=== PATIENT | male | born 1965 | race Caucasian/White ===

== ENCOUNTER 2017-05-23 05:35 | Inpatient (IN) | payer MEDICARE ==
[2017-05-23] VITALS (8 sets, daily range): BP systolic 98–145; BP diastolic 55–82
[~2017-05-23] VITALS: Ht 172.7 cm; Wt 77.1 kg
[2017-05-23] MEDS ORDERED: Albuterol ud Inhalation HHN ONE ×3 (05:45→07:45)
[2017-05-23] MEDS ORDERED: Ipratropium 0.02% Inh Soln 2.5ml UD ONE (05:45)
[2017-05-23] MEDS ORDERED: Albuterol ud Inhalation ONE (05:45)
[2017-05-23] MEDS ORDERED: Ipratropium 0.02% Inh Soln 2.5ml UD HHN ONE (05:45)
[2017-05-23] MEDS ORDERED: LORazepam Inj 2mg/ml 1ml IV ONE (05:45)
[2017-05-23] MEDS ORDERED: Solu-MEDROL 125mg Inj IVP ONE (05:45)
--- NOTE | 2017-05-23 05:49 | Emergency Room Report ---
History of Present Illness General Chief Complaint: Dyspnea/Respdistress Source: Patient, Medical Record Present Illness HPI Is a 50-year-old male with a history of asthma and anxiety. He present chief complaint chest pain. Onset since Sunday. He saw his primary care for sinus headache. Patient antibiotics. Symptom progressively getting worse. Now wheezing. Tight. Breathing treatment not helping. He called 911 because he couldn't breathe. No nausea no vomiting. No fever or chills. Has anxiety and palpation. No chest pain. Allergies: Coded Allergies: GABAPENTIN (Verified Allergy, Unknown, 05/23/17) PENICILLINS (Verified Allergy, Unknown, 05/23/17) TETRACYCLINES (Verified Allergy, Unknown, 05/23/17) Patient History Past Medical History: see triage record, old chart reviewed, asthma Past Surgical History: other Pertinent Family History: none Social History: Denies: smoking Immunizations: other Reviewed Nursing Documentation: PMH: Agreed, PSxH: Agreed Nursing Documentation-PMH Hx Hypertension: Yes Hx Asthma: Yes History Of Psychiatric Problem: Yes - Anxiety Review of Systems Eye: Denies: eye pain, blurred vision ENT: Denies: ear pain, nose congestion, throat swelling Respiratory: Reports: cough, shortness of breath, wheezing Cardiovascular: Denies: chest pain, palpitations Gastrointestinal: Denies: abdominal pain, diarrhea, nausea, vomiting Musculoskeletal: Denies: back pain, joint pain Skin: Denies: rash Neurological: Denies: headache, numbness Endocrine: Denies: increased thirst, increased urine Hematologic/Lymphatic: Denies: easy bruising All Other Systems: negative except mentioned in HPI Physical Exam Vital Signs Date Time Temp Pulse Resp B/P (MAP) Pulse Ox O2 Delivery O2 Flow Rate FiO2 05/23/17 05:33 97.0 134 29 98/74 93 Simple Mask 15.0 vitals with tachycardia and hypoxia Sp02 EP Interpretation: reviewed, abnormal General Appearance: well appearing, alert, moderate distress Head: normocephalic, atraumatic Eyes: bilateral eye PERRL, bilateral eye EOMI ENT: hearing grossly normal, normal pharynx Neck: full range of motion, supple, no meningismus Respiratory: chest non-tender, decreased breath sounds, accessory muscle use, wheezing Cardiovascular #1: regular rate, rhythm, no murmur Gastrointestinal: normal bowel sounds, non tender, no mass, no organomegaly, no bruit, non-distended Musculoskeletal: back normal, gait/station normal, normal range of motion Psychiatric: mood/affect normal Skin: warm/dry Procedures Critical Care Time Critical Care Time Critical care is mandated in this patient who presented with respiratory distress from status asthmaticus. Patient require my urgent intervention to attenuate the risks of respiratory collapse which may lead to cardiovascular collapse and . Critical care time is 35 minutes excluding any reportable procedure. Critical care time included evaluation, multiple reevaluation, looking at old charts, interpreting laboratory and diagnostic data, discussing case with patient and family and consultants, and charting. Medical Decision Making Diagnostic Impression: Primary Impression: Respiratory distress Additional Impression: Status asthmaticus Qualified Codes: J45.902 - Unspecified asthma with status asthmaticus ER Course Patient with asthma exacerbation. Still wheezing but improving. Heart rate better. X-ray unremarkable. Because of his respiratory status, will admit versus transfer for further treatment. I will sign this patient out to Dr. Carvajal for final disposition. Lab Results Impression labs with leukocytosis EKG Diagnostic Results Rate: tachycardiac Rhythm: NSR ST Segments: no acute changes Rhythm Strip Diag. Results Rhythm Strip Time: 06:49 EP Interpretation: yes Rate: 116 Rhythm: NSR, no PVC's, no ectopy Chest X-Ray Diagnostic Results Chest X-Ray Diagnostic Results : Chest X-Ray Ordered: Yes # of Views/Limited/Complete: 1 View Indication: Shortness of Breath EP Interpretation: Yes Interpretation: no consolidation, no effusion, no pneumothorax, no acute cardiopulmonary disease Impression: No acute disease Electronically Signed by: Electronically signed by Ramiro Mccollum MD Last Vital Signs Date Time Temp Pulse Resp B/P (MAP) Pulse Ox O2 Delivery O2 Flow Rate FiO2 05/23/17 05:33 97.0 134 29 98/74 93 Simple Mask 15.0 Status: improved Disposition: ADMITTED INPATIENT Condition: Serious RAMIRO MCCOLLUM M.D. May 23, 2017 05:49
[2017-05-23 06:17] LABS: BASOPHILS % (AUTO) 0.5 % (0.0-2.0); LYMPHOCYTES % (AUTO) 17.2 % (20.0-45.0); MEAN CORPUSCULAR HGB CONC 33.7 G/DL (32.0-36.0); MEAN CORPUSCULAR VOLUME 95 FL (80-99); MEAN PLATELET VOLUME 6.8 FL (6.5-10.1); MONOCYTES % (AUTO) 7.5 % (1.0-10.0); NEUTROPHILS % (AUTO) 69.8 % (45.0-75.0); PLATELET COUNT 213 K/UL (150-450); RED BLOOD COUNT 4.49 M/UL (4.70-6.10); RED CELL DISTRIBUTION WIDTH 12.5 % (11.6-14.8); WHITE BLOOD COUNT 15.1 K/UL (4.8-10.8)
[2017-05-23] MEDS ORDERED: ALPRAZOLAM1 M2 ORAL (07:00)
[2017-05-23] MEDS ORDERED: DIVALPROEX SOD500 M2 PO (07:00)
[2017-05-23] MEDS ORDERED: METOPROLOL SUCC50 MG ORAL (07:00)
[2017-05-23] MEDS ORDERED: EDARBI40 MG ORAL (07:00)
[2017-05-23] MEDS ORDERED: DIVALPROEX SOD250 M1 PO (07:00)
[2017-05-23] MEDS ORDERED: VENLAFAXINE HC150 MG ORAL (07:00)
[2017-05-23] MEDS ORDERED: NORVASC10 MG ORAL (07:00)
[2017-05-23] MEDS ORDERED: Azithromycin 250mg tab ORAL ONE (07:15)
[2017-05-23 07:18] LABS: ALANINE AMINOTRANSFERASE 18 U/L (12-78); ALBUMIN/GLOBULIN RATIO 1.1 (1.0-2.7); ANION GAP 10 mmol/L (5-15); ASPARTATE AMINO TRANSFERASE 14 U/L (15-37); CALCIUM 9.2 MG/DL (8.5-10.1); CARBON DIOXIDE 27 MMOL/L (21-32); CHLORIDE 106 MMOL/L (98-107); CKMB 1.1 NG/ML (0.0-3.6); GLOMERULAR FILTRATION RATE > 60 mL/min (>60); POTASSIUM 4.1 MMOL/L (3.5-5.1); SODIUM 143 MMOL/L (136-145); TOTAL PROTEIN 7.4 G/DL (6.4-8.2)
[2017-05-23] MEDS ORDERED: Albuterol/Ipratropium 3ml neb HHN PRN ×2 (08:45→10:15)
[2017-05-23 08:47] LABS: APPEARANCE,URINE SLIGHTLY CLOUDY; KETONES,URINE 3+ (NEGATIVE); LEUKOCYTE ESTERASE ,URINE 1+ (NEGATIVE); NITRITE,URINE NEGATIVE (NEGATIVE); PH,URINE 5 (4.5-8.0); PROTEIN,URINE 2+ (NEGATIVE); UROBILINOGEN,URINE NORMAL MG/DL (0.0-1.0)
[2017-05-23 09:01] LABS: BACTERIA,URINE FEW /HPF; MUCUS,URINE MODERATE /LPF (NONE/OCC); SQUAMOUS EPITHELIAL CELL,UR OCCASIONAL /LPF (NONE/OCC)
[2017-05-23] MEDS ORDERED: Promethazine/Codeine 5ml UD ORAL PRN (10:15)
[2017-05-23] MEDS ORDERED: Nitroglycerin Subl 0.4mg tab SL PRN (10:15)
[2017-05-23] MEDS ORDERED: LORazepam Inj 2mg/ml 1ml IV PRN (10:15)
[2017-05-23] MEDS ORDERED: Ketorolac 30mg Inj IV PRN (10:15)
[2017-05-23] MEDS ORDERED: Morphine Sulfate 2mg/ml Inj IVP PRN (10:15)
--- NOTE | 2017-05-23 11:48 | Diagnostic Imaging Report ---
Indication: SOB Technique: One view of the chest Comparison: none Findings: Lungs and pleural spaces are clear. Heart size is normal. Impression: No acute process
[2017-05-23] MEDS: Solu-MEDROL 125mg Inj IV SCH ×2 (12:26→18:09)
--- NOTE | 2017-05-23 14:50 | History and Physical ---
History of Present Illness General Date patient seen: May 23, 2017 Time patient seen: 14:50 Reason for Hospitalization: Dyspnea/Respdistress Present Illness HPI 50yo male with pmh of asthma, tobacco abuse, HTN, bipolar d/o, anxiety, testicular cancer s/p orchiectomy and XRT who presents with SOB and congestion. Pt states symptoms started Sunday w/ sinus pressure, headache, congestion. He saw his PCP and was placed on antibiotics. He noted increasing SOB, wheezing, cough, congestion. Cough is productive of thick sputum. His inhaler did not help. He called 911 because he couldn't breathe. Denies f/c, n/v, d/c, abd pain , LE swelling. Also notes some chest discomfort form congestion and constant coughing. In ED, pt noted to be hypoxic to 88% on RA, tachycardic and wheezing. He was given several rounds of nebs, steroids and antibiotics w/o significant response. Allergies: Coded Allergies: GABAPENTIN (Verified Allergy, Unknown, 05/23/17) PENICILLINS (Verified Allergy, Unknown, 05/23/17) TETRACYCLINES (Verified Allergy, Unknown, 05/23/17) Medication History Scheduled Alprazolam (Alprazolam), 1 MG ORAL TID, (Reported) Amlodipine Besylate (Norvasc), 10 MG ORAL DAILY, (Reported) Azilsartan Medoxomil (Edarbi), 40 MG ORAL DAILY, (Reported) Metoprolol Succinate* (Metoprolol Succinate*), 50 MG ORAL DAILY, (Reported) Venlafaxine Hcl* (Venlafaxine Hcl Er*), 150 MG ORAL DAILY, (Reported) Miscellaneous Medications Divalproex Sodium (Divalproex Sodium Er), 500 MG PO, (Reported) Divalproex Sodium (Divalproex Sodium Er), 250 MG PO, (Reported) Patient History History Provided By: Patient, Medical Record, PMD Healthcare decision maker Resuscitation status Advanced Directive on File Past Medical/Surgical History Past Medical/Surgical History: (1) Asthma (2) HTN (hypertension) (3) Bipolar disorder (4) Testicular cancer (5) S/P orchiectomy (6) Anxiety Family History Family History: FH: HTN (hypertension) TIAs Social History Social History: (1) Tobacco abuse Review of Systems Constitutional: Reports: no symptoms Eye: Reports: no symptoms ENT: Reports: no symptoms Respiratory: Reports: cough, shortness of breath, wheezing, sputum Cardiovascular: Reports: palpitations Gastrointestinal: Reports: no symptoms Genitourinary: Reports: no symptoms Musculoskeletal: Reports: no symptoms Skin: Reports: no symptoms Psychiatric: Reports: no symptoms Neurological: Reports: no symptoms Endocrine: Reports: no symptoms Hematologic/Lymphatic: Reports: no symptoms Physical Exam Physical Exam Narrative General: alert, cooperative, no distress, appears stated age Head: normocephalic, without obvious abnormality, atraumatic Eyes: conjunctivae/corneas clear. PERRL, EOM's intact Throat: lips, mucosa, and tongue normal. MMM Neck: supple, symmetrical, trachea midline, and no JVD Lungs: +wheezing L>R Heart: tachycardic, regular rhythm, S1, S2 normal, no murmur, click, rub or gallop Abdomen: soft, non-tender, non-distended, bowel sounds normal; no masses or organomegaly Extremities: extremities normal, atraumatic, no cyanosis or edema Pulses: 2+ and symmetric Skin: skin color, texture, turgor normal; no rashes or lesions Neurologic: grossly normal, no focal deficits Last 24 Hour Vital Signs Date Time Temp Pulse Resp B/P (MAP) Pulse Ox O2 Delivery O2 Flow Rate FiO2 05/23/17 09:15 98 18 96 Nasal Cannula 2.0 28 05/23/17 08:35 100 20 93 Simple Mask 6.0 44 05/23/17 08:00 103 28 128/65 97 Simple Mask 6.0 05/23/17 07:10 111 20 98 Simple Mask 6.0 05/23/17 07:00 115 20 96 Room Air 05/23/17 06:33 97.0 113 28 118/55 97 Simple Mask 15.0 05/23/17 06:07 130 24 98 Room Air 05/23/17 05:50 125 24 94 Room Air 05/23/17 05:50 125 24 Room Air 05/23/17 05:41 134 29 Simple Mask 15.0 93 05/23/17 05:40 97.0 134 29 98/74 93 Simple Mask 15.0 05/23/17 05:33 97.0 134 29 98/74 93 Simple Mask 15.0 Laboratory Tests Test 05/23/17 05:45 05/23/17 08:00 White Blood Count 15.1 K/UL (4.8-10.8) H Red Blood Count 4.49 M/UL (4.70-6.10) L Hemoglobin 14.4 G/DL (14.2-18.0) Hematocrit 42.7 % (42.0-52.0) Mean Corpuscular Volume 95 FL (80-99) Mean Corpuscular Hemoglobin 32.0 PG (27.0-31.0) H Mean Corpuscular Hemoglobin Concent 33.7 G/DL (32.0-36.0) Red Cell Distribution Width 12.5 % (11.6-14.8) Platelet Count 213 K/UL (150-450) Mean Platelet Volume 6.8 FL (6.5-10.1) Neutrophils (%) (Auto) 69.8 % (45.0-75.0) Lymphocytes (%) (Auto) 17.2 % (20.0-45.0) L Monocytes (%) (Auto) 7.5 % (1.0-10.0) Eosinophils (%) (Auto) 5.0 % (0.0-3.0) H Basophils (%) (Auto) 0.5 % (0.0-2.0) Sodium Level 143 MMOL/L (136-145) Potassium Level 4.1 MMOL/L (3.5-5.1) Chloride Level 106 MMOL/L (98-107) Carbon Dioxide Level 27 MMOL/L (21-32) Anion Gap 10 mmol/L (5-15) Blood Urea Nitrogen 16 mg/dL (7-18) Creatinine 1.0 MG/DL (0.55-1.30) Estimat Glomerular Filtration Rate > 60 mL/min (>60) Glucose Level 138 MG/DL (74-106) H Calcium Level 9.2 MG/DL (8.5-10.1) Total Bilirubin 0.5 MG/DL (0.2-1.0) Aspartate Amino Transf (AST/SGOT) 14 U/L (15-37) L Alanine Aminotransferase (ALT/SGPT) 18 U/L (12-78) Alkaline Phosphatase 77 U/L (46-116) Total Creatine Kinase 74 U/L (26-308) Creatine Kinase MB 1.1 NG/ML (0.0-3.6) Creatine Kinase MB Relative Index 1.4 Troponin I 0.007 ng/mL (0.000-0.056) Pro-B-Type Natriuretic Peptide 33 pg/mL (0-125) Total Protein 7.4 G/DL (6.4-8.2) Albumin 3.8 G/DL (3.4-5.0) Globulin 3.6 g/dL Albumin/Globulin Ratio 1.1 (1.0-2.7) Urine Color Yellow Urine Appearance Slightly cloudy Urine pH 5 (4.5-8.0) Urine Specific [place] 1.020 (1.005-1.035) Urine Protein 2+ (NEGATIVE) H Urine Glucose (UA) Negative (NEGATIVE) Urine Ketones 3+ (NEGATIVE) H Urine Occult Blood 2+ (NEGATIVE) H Urine Nitrite Negative (NEGATIVE) Urine Bilirubin Negative (NEGATIVE) Urine Urobilinogen Normal MG/DL (0.0-1.0) Urine Leukocyte Esterase 1+ (NEGATIVE) H Urine RBC 2-4 /HPF (0 - 0) H Urine WBC 10-15 /HPF (0 - 0) H Urine Squamous Epithelial Cells Occasional /LPF Urine Bacteria Few /HPF (NONE) Urine Mucus Moderate /LPF (NONE/OCC) H Urine Opiates Screen Negative (NEGATIVE) Urine Barbiturates Screen Negative (NEGATIVE) Phencyclidine (PCP) Screen Negative (NEGATIVE) Urine Amphetamines Screen Negative (NEGATIVE) Urine Benzodiazepines Screen Positive (NEGATIVE) H Urine Cocaine Screen Negative (NEGATIVE) Urine Marijuana (THC) Screen Negative (NEGATIVE) Height (Feet): 5 Height (Inches): 8.00 Weight (Pounds): 170 Medications Current Medications Medications (Trade) Dose Ordered Sig/[place] Route PRN Reason Start Time Stop Time Status Last Admin Dose Admin Albuterol/ Ipratropium (DuoNeb 0.5-3(2.5)mg/3ml) 3 ml Q4H PRN HHN Shortness of Breath 05/23/17 08:45 05/28/17 08:44 Aztreonam 1 gm/ Sodium Chloride 50 ml @ 100 mls/hr EVERY 8 HOURS IVPB 05/23/17 16:00 05/30/17 15:59 Dextrose (Dextrose 50%) STAT PRN IV Hypoglycemia 05/23/17 08:45 06/22/17 08:44 Dextrose (Dextrose 50%) STAT PRN IV Hypoglycemia 05/23/17 10:15 06/22/17 10:14 Heparin Sodium (Porcine) (Heparin 5000 units/ml) 5,000 units EVERY 12 HOURS SUBQ 05/23/17 21:00 06/22/17 20:59 Ketorolac Tromethamine (Toradol 30mg) 30 mg Q8H PRN IV Moderate Pain (Pain Scale 4-6) 05/23/17 10:15 05/28/17 10:14 Lorazepam (Ativan 2mg/ml 1ml) 0.5 mg Q4H PRN IV For Anxiety 05/23/17 10:15 05/30/17 10:14 Methylprednisolone Sodium Succinate (Solu-MEDROL) 60 mg EVERY 6 HOURS IV 05/23/17 12:00 06/22/17 11:59 05/23/17 12:26 Morphine Sulfate (Morphine Sulfate) 2 mg Q4H PRN IVP Severe Pain (Pain Scale 7-10) 05/23/17 10:15 05/30/17 10:14 Nitroglycerin (Ntg) 0.4 mg Q5M X 3 DOSES PRN SL Prn Chest Pain 05/23/17 10:15 06/22/17 10:14 Ondansetron HCl (Zofran) 4 mg Q6H PRN IVP Nausea & Vomiting 05/23/17 10:15 06/22/17 10:14 Promethazine HCl/ Codeine (Phenergan with Codeine) 5 ml Q6H PRN ORAL cough 05/23/17 10:15 06/22/17 10:14 Temazepam (Restoril) 15 mg HSPRN PRN ORAL Insomnia 05/23/17 21:00 05/30/17 20:59 Theophylline (Cast[place]-Dur) 100 mg EVERY 12 HOURS ORAL 05/23/17 21:00 06/22/17 20:59 Assessment/Plan Problem List: (1) Acute respiratory failure with hypoxia ICD Codes: J96.01 - Acute respiratory failure with hypoxia SNOMED: 42027567, 545333099 (2) [place] vs COPD exacerbaion (3) Sinus tachycardia ICD Codes: R00.0 - Tachycardia, unspecified SNOMED: 05367828 (4) Tobacco abuse ICD Codes: Z72.0 - Tobacco use SNOMED: 78650979, 490835570 (5) HTN (hypertension) ICD Codes: I10 - Essential (primary) hypertension SNOMED: 24555151 (6) Anxiety ICD Codes: F41.9 - Anxiety disorder, unspecified SNOMED: 61243205 (7) Asthma ICD Codes: J45.909 - Unspecified asthma, uncomplicated SNOMED: 570231401 (8) Bipolar disorder ICD Codes: F31.9 - Bipolar disorder, unspecified SNOMED: 82633035 (9) Sinusitis ICD Codes: J32.9 - Chronic sinusitis, unspecified SNOMED: 00584660 (10) Chest pain, atypical ICD Codes: R07.89 - Other chest pain SNOMED: 088027848 Status: stable Assessment/Plan Admit inpt Pulmonology consulted Cont steroids, nebs, antibiotics Guaifenesin PRN Cardiology consulted given chest pain Trend trop/EKG 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 Disposition: Once the patient is stable to leave the hospital, I anticipate the patient will likely be discharged to the following environment: home with HH vs SNF I spent 72 minutes on this patient's case, and 45 minutes were dedicated to counseling and/or care coordination. Discussed with patient/family, nursing staff, SW/CM, pulmonology, cardiology regarding clinical status, treatment course, and disposition planning. Time of note may not reflect time of encounter. Ana Cristina Martínez M.D. May 23, 2017 14:50
--- NOTE | 2017-05-23 15:19 | Cardiology Report ---
APPROVED REPORT EKG Measurement Heart [id number] [id number] Sinus tachycardia Left posterior fascicular block Abnormal ECG
[2017-05-23] MEDS ORDERED: ALPRAZolam 0.5mg tab ORAL PRN (16:15)
[2017-05-23] MEDS: Aztreonam Inj 1 GM in NS 50 ML IVPB SCH ×2 (16:24→21:36)
[2017-05-23] MEDS: Depakote ER 250mg tab ORAL SCH (16:40)
[2017-05-23] MEDS: Ipratropium 0.02% Inh Soln 2.5ml UD HHN SCH ×2 (19:00→23:15)
[2017-05-23] MEDS: Theophylline ER 100mg ORAL SCH (21:35)
[2017-05-23] MEDS: Heparin 5000 units/ml inj SUBQ SCH (21:40)
[2017-05-23] MEDS ORDERED: guaiFENesin DM 100mg/5ml ORAL PRN (23:00)
[2017-05-24] VITALS: BP 147/90
[2017-05-24] MEDS: Solu-MEDROL 125mg Inj IV SCH ×4 (00:20→17:52)
[2017-05-24] MEDS: Ipratropium 0.02% Inh Soln 2.5ml UD HHN SCH ×6 (03:11→22:53)
[2017-05-24 04:00] VITALS: BP 144/89
[2017-05-24] MEDS: Aztreonam Inj 1 GM in NS 50 ML IVPB SCH ×2 (06:14→14:27)
[2017-05-24 06:17] LABS: MEAN CORPUSCULAR HEMOGLOBIN 31.8 PG (27.0-31.0); MEAN CORPUSCULAR HGB CONC 33.7 G/DL (32.0-36.0); MEAN CORPUSCULAR VOLUME 94 FL (80-99); MEAN PLATELET VOLUME 7.3 FL (6.5-10.1); PLATELET COUNT 229 K/UL (150-450); RED BLOOD COUNT 4.12 M/UL (4.70-6.10); RED CELL DISTRIBUTION WIDTH 12.6 % (11.6-14.8); WHITE BLOOD COUNT 21.8 K/UL (4.8-10.8)
[2017-05-24 06:29] LABS: ANION GAP 10 mmol/L (5-15); CALCIUM 9.3 MG/DL (8.5-10.1); CARBON DIOXIDE 27 MMOL/L (21-32); CHLORIDE 106 MMOL/L (98-107); CREATININE 0.6 MG/DL (0.55-1.30); GLOMERULAR FILTRATION RATE > 60 mL/min (>60); MAGNESIUM 2.4 MG/DL (1.8-2.4); POTASSIUM 4.5 MMOL/L (3.5-5.1); SODIUM 143 MMOL/L (136-145)
[2017-05-24 08:00] VITALS: BP 165/97
[2017-05-24] MEDS: Theophylline ER 100mg ORAL SCH ×2 (08:54→21:19)
[2017-05-24] MEDS: guaiFENesin ER 600mg tab ORAL SCH ×2 (08:56→17:52)
[2017-05-24] MEDS: EDARBI 40 MG ORAL SCH (08:56)
[2017-05-24] MEDS: Heparin 5000 units/ml inj SUBQ SCH ×2 (08:59→21:21)
[2017-05-24] MEDS ORDERED: Venlafaxine XR 150mg cap ORAL SCH (09:00)
[2017-05-24] MEDS ORDERED: Metoprolol Succinate XL 50mg tab ORAL SCH (09:00)
[2017-05-24 09:39] LABS: BAND NEUTROPHILS % (MANUAL) 0 % (0-8); BASOPHILS % (MANUAL) 0 % (0-2); EOSINOPHILS % (MANUAL) 0 % (0-3); LYMPHOCYTES % (MANUAL) 6 % (20-45); NEUTROPHILS % (MANUAL) 93 % (45-75); PLATELET ESTIMATE ADEQUATE; PLATELET MORPHOLOGY NORMAL; TOTAL CELLS COUNTED 100
--- NOTE | 2017-05-24 10:43 | Cardiac Electrophysiology PN ---
Subjective Subjective Dictated [id number] Objective Last 24 Hour Vital Signs Date Time Temp Pulse Resp B/P (MAP) Pulse Ox O2 Delivery O2 Flow Rate FiO2 05/24/17 08:55 101 165/97 05/24/17 08:54 101 165/97 05/24/17 08:00 98.4 101 18 165/97 96 Nasal Cannula 2.0 05/24/17 07:42 100 20 98 Nasal Cannula 2.0 28 05/24/17 07:27 99 20 95 Nasal Cannula 2.0 28 05/24/17 07:26 Nasal Cannula 2.0 28 05/24/17 07:26 95 Nasal Cannula 2.0 28 05/24/17 04:00 97.9 89 20 144/89 93 Nasal Cannula 2.0 05/24/17 04:00 93 05/24/17 03:19 78 18 99 Nasal Cannula 2.0 28 05/24/17 03:10 90 18 93 Nasal Cannula 2.0 28 05/24/17 00:00 98.4 90 20 147/90 96 Nasal Cannula 2.0 05/23/17 23:24 77 18 98 Nasal Cannula 2.0 28 05/23/17 23:15 87 18 92 Nasal Cannula 2.0 28 05/23/17 21:00 103 05/23/17 20:00 98.8 96 21 141/77 96 Nasal Cannula 2.0 05/23/17 20:00 98 05/23/17 19:10 105 20 97 Nasal Cannula 2.0 28 05/23/17 19:00 Nasal Cannula 2.0 28 05/23/17 19:00 94 Nasal Cannula 2.0 28 05/23/17 19:00 113 20 94 Nasal Cannula 2.0 28 05/23/17 16:59 98 05/23/17 16:00 99.0 102 24 145/82 95 Nasal Cannula 2.0 05/23/17 14:14 98.6 102 23 124/68 96 Nasal Cannula 4.0 05/23/17 14:14 102 23 124/68 96 Nasal Cannula 4.0 05/23/17 12:00 103 30 126/70 94 Nasal Cannula 4.0 Intake and Output 05/24/17 05/25/17 19:00 07:00 Intake Total 450 ml Balance 450 ml Intake Oral 450 ml # Voids 1 Laboratory Tests Test 05/24/17 04:45 White Blood Count 21.8 K/UL (4.8-10.8) H Red Blood Count 4.12 M/UL (4.70-6.10) L Hemoglobin 13.1 G/DL (14.2-18.0) L Hematocrit 38.9 % (42.0-52.0) L Mean Corpuscular Volume 94 FL (80-99) Mean Corpuscular Hemoglobin 31.8 PG (27.0-31.0) H Mean Corpuscular Hemoglobin Concent 33.7 G/DL (32.0-36.0) Red Cell Distribution Width 12.6 % (11.6-14.8) Platelet Count 229 K/UL (150-450) Mean Platelet Volume 7.3 FL (6.5-10.1) Neutrophils (%) (Auto) % (45.0-75.0) Lymphocytes (%) (Auto) % (20.0-45.0) Monocytes (%) (Auto) % (1.0-10.0) Eosinophils (%) (Auto) % (0.0-3.0) Basophils (%) (Auto) % (0.0-2.0) Differential Total Cells Counted 100 Neutrophils % (Manual) 93 % (45-75) H Lymphocytes % (Manual) 6 % (20-45) L Monocytes % (Manual) 1 % (1-10) Eosinophils % (Manual) 0 % (0-3) Basophils % (Manual) 0 % (0-2) Band Neutrophils 0 % (0-8) Platelet Estimate Adequate Platelet Morphology Normal Red Blood Cell Morphology Normal Sodium Level 143 MMOL/L (136-145) Potassium Level 4.5 MMOL/L (3.5-5.1) Chloride Level 106 MMOL/L (98-107) Carbon Dioxide Level 27 MMOL/L (21-32) Anion Gap 10 mmol/L (5-15) Blood Urea Nitrogen 14 mg/dL (7-18) Creatinine 0.6 MG/DL (0.55-1.30) Estimat Glomerular Filtration Rate > 60 mL/min (>60) Glucose Level 128 MG/DL (74-106) H Calcium Level 9.3 MG/DL (8.5-10.1) Magnesium Level 2.4 MG/DL (1.8-2.4) Troponin I 0.146 ng/mL (0.000-0.056) Microbiology Date/Time Source Procedure Growth Status 05/23/17 08:00 Urine,Clean Catch Urine Culture - Preliminary NO GROWTH Resulted BETH MOON May 24, 2017 10:43
[2017-05-24 12:04] VITALS: BP 160/100
--- NOTE | 2017-05-24 12:05 | Consultation ---
History of Present Illness General Date patient seen: May 23, 2017 Chief Complaint: Dyspnea/Respdistress Present Illness HPI 50-year-old male with a history of HTN, multiple allergies, asthma and anxiety He present chief complaint chest tightness and difficulty breathing with wheezing. He called 911 because he couldn't breathe. It all started with a sinus infection which moved to his lungs. Pt was diagnosed to have acute exacerbation of Asthma and COPD and admitted to [facility] Allergies: Coded Allergies: GABAPENTIN (Verified Allergy, Unknown, 05/23/17) PENICILLINS (Verified Allergy, Unknown, 05/23/17) TETRACYCLINES (Verified Allergy, Unknown, 05/23/17) Medication History Scheduled Alprazolam (Alprazolam), 1 MG ORAL TID, (Reported) Amlodipine Besylate (Norvasc), 10 MG ORAL DAILY, (Reported) Azilsartan Medoxomil (Edarbi), 40 MG ORAL DAILY, (Reported) Metoprolol Succinate* (Metoprolol Succinate*), 50 MG ORAL DAILY, (Reported) Venlafaxine Hcl* (Venlafaxine Hcl Er*), 150 MG ORAL DAILY, (Reported) Miscellaneous Medications Divalproex Sodium (Divalproex Sodium Er), 500 MG PO, (Reported) Divalproex Sodium (Divalproex Sodium Er), 250 MG PO, (Reported) Patient History Healthcare decision maker Resuscitation status Full Code Advanced Directive on File No Past Medical/Surgical History Past Medical/Surgical History: (1) Tobacco abuse (2) Anxiety (3) HTN (hypertension) (4) Asthma (5) Testicular cancer (6) Bipolar disorder Review of Systems Constitutional: Reports: no symptoms Eye: Reports: no symptoms ENT: Reports: no symptoms Physical Exam General Appearance: WD/WN, no apparent distress Lines, tubes and drains: peripheral HEENT: normocephalic, anicteric Neck: non-tender Respiratory/Chest: expiratory wheezing, inspiratory wheezing Cardiovascular/Chest: normal peripheral pulses, normal rate Abdomen: normal bowel sounds, soft Genitourinary/Rectal: normal rectal exam Extremities: normal range of motion, normal inspection Last 24 Hour Vital Signs Date Time Temp Pulse Resp B/P (MAP) Pulse Ox O2 Delivery O2 Flow Rate FiO2 05/24/17 11:19 101 22 98 Nasal Cannula 2.0 28 05/24/17 11:10 102 20 98 Nasal Cannula 2.0 28 05/24/17 08:55 101 165/97 05/24/17 08:54 101 165/97 05/24/17 08:00 98.4 101 18 165/97 96 Nasal Cannula 2.0 05/24/17 08:00 117 05/24/17 07:42 100 20 98 Nasal Cannula 2.0 28 05/24/17 07:27 99 20 95 Nasal Cannula 2.0 28 05/24/17 07:26 Nasal Cannula 2.0 28 05/24/17 07:26 95 Nasal Cannula 2.0 28 05/24/17 04:00 97.9 89 20 144/89 93 Nasal Cannula 2.0 05/24/17 04:00 93 05/24/17 03:19 78 18 99 Nasal Cannula 2.0 28 05/24/17 03:10 90 18 93 Nasal Cannula 2.0 28 05/24/17 00:00 98.4 90 20 147/90 96 Nasal Cannula 2.0 05/23/17 23:24 77 18 98 Nasal Cannula 2.0 28 05/23/17 23:15 87 18 92 Nasal Cannula 2.0 28 05/23/17 21:00 103 05/23/17 20:00 98.8 96 21 141/77 96 Nasal Cannula 2.0 05/23/17 20:00 98 05/23/17 19:10 105 20 97 Nasal Cannula 2.0 28 05/23/17 19:00 Nasal Cannula 2.0 28 05/23/17 19:00 94 Nasal Cannula 2.0 28 05/23/17 19:00 113 20 94 Nasal Cannula 2.0 28 05/23/17 16:59 98 05/23/17 16:00 99.0 102 24 145/82 95 Nasal Cannula 2.0 05/23/17 14:14 98.6 102 23 124/68 96 Nasal Cannula 4.0 05/23/17 14:14 102 23 124/68 96 Nasal Cannula 4.0 05/23/17 12:00 103 30 126/70 94 Nasal Cannula 4.0 Intake and Output 05/24/17 05/25/17 19:00 07:00 Intake Total 450 ml Balance 450 ml Intake Oral 450 ml # Voids 1 # Bowel Movements 1 Laboratory Tests Test 05/24/17 04:45 05/24/17 10:50 White Blood Count 21.8 K/UL (4.8-10.8) H Red Blood Count 4.12 M/UL (4.70-6.10) L Hemoglobin 13.1 G/DL (14.2-18.0) L Hematocrit 38.9 % (42.0-52.0) L Mean Corpuscular Volume 94 FL (80-99) Mean Corpuscular Hemoglobin 31.8 PG (27.0-31.0) H Mean Corpuscular Hemoglobin Concent 33.7 G/DL (32.0-36.0) Red Cell Distribution Width 12.6 % (11.6-14.8) Platelet Count 229 K/UL (150-450) Mean Platelet Volume 7.3 FL (6.5-10.1) Neutrophils (%) (Auto) % (45.0-75.0) Lymphocytes (%) (Auto) % (20.0-45.0) Monocytes (%) (Auto) % (1.0-10.0) Eosinophils (%) (Auto) % (0.0-3.0) Basophils (%) (Auto) % (0.0-2.0) Differential Total Cells Counted 100 Neutrophils % (Manual) 93 % (45-75) H Lymphocytes % (Manual) 6 % (20-45) L Monocytes % (Manual) 1 % (1-10) Eosinophils % (Manual) 0 % (0-3) Basophils % (Manual) 0 % (0-2) Band Neutrophils 0 % (0-8) Platelet Estimate Adequate Platelet Morphology Normal Red Blood Cell Morphology Normal Sodium Level 143 MMOL/L (136-145) Potassium Level 4.5 MMOL/L (3.5-5.1) Chloride Level 106 MMOL/L (98-107) Carbon Dioxide Level 27 MMOL/L (21-32) Anion Gap 10 mmol/L (5-15) Blood Urea Nitrogen 14 mg/dL (7-18) Creatinine 0.6 MG/DL (0.55-1.30) Estimat Glomerular Filtration Rate > 60 mL/min (>60) Glucose Level 128 MG/DL (74-106) H Calcium Level 9.3 MG/DL (8.5-10.1) Magnesium Level 2.4 MG/DL (1.8-2.4) Troponin I 0.146 ng/mL (0.000-0.056) Pending Height (Feet): 5 Height (Inches): 8.00 Weight (Pounds): 170 Medications Current Medications Medications (Trade) Dose Ordered Sig/[place] Route PRN Reason Start Time Stop Time Status Last Admin Dose Admin Albuterol/ Ipratropium (DuoNeb 0.5-3(2.5)mg/3ml) 3 ml Q4H PRN HHN Shortness of Breath 05/23/17 08:45 05/28/17 08:44 Alprazolam (Xanax) 1 mg QIDPRN PRN ORAL For Anxiety 05/23/17 16:15 05/30/17 16:14 Amlodipine Besylate (Norvasc) 10 mg DAILY ORAL 05/24/17 09:00 06/23/17 08:59 05/24/17 08:54 Aspirin (Ecotrin) 81 mg DAILY ORAL 05/24/17 11:30 06/23/17 11:29 Atorvastatin Calcium (Lipitor) 40 mg BEDTIME ORAL 05/24/17 21:00 06/23/17 20:59 Aztreonam 1 gm/ Sodium Chloride 50 ml @ 100 mls/hr EVERY 8 HOURS IVPB 05/23/17 16:00 05/30/17 15:59 05/24/17 06:14 Dextrose (Dextrose 50%) STAT PRN IV Hypoglycemia 05/23/17 08:45 06/22/17 08:44 Dextrose (Dextrose 50%) STAT PRN IV Hypoglycemia 05/23/17 10:15 06/22/17 10:14 Divalproex Sodium (Depakote ER) 750 mg QPM ORAL 05/23/17 16:30 06/22/17 16:29 05/23/17 16:40 Guaifenesin (Mucinex ER) 600 mg TWICE A DAY ORAL 05/24/17 09:00 06/23/17 08:59 05/24/17 08:56 Guaifenesin/ Dextromethorphan (Robitussin DM) 10 ml Q4H PRN ORAL For Cough 05/23/17 23:00 06/22/17 22:59 Heparin Sodium (Porcine) (Heparin 5000 units/ml) 5,000 units EVERY 12 HOURS SUBQ 05/23/17 21:00 06/22/17 20:59 05/24/17 08:59 Ipratropium [place] (Atrovent) 500 mcg Q4HRT HHN 05/23/17 19:00 05/28/17 18:59 05/24/17 11:09 Ketorolac Tromethamine (Toradol 30mg) 30 mg Q8H PRN IV Moderate Pain (Pain Scale 4-6) 05/23/17 10:15 05/28/17 10:14 Lorazepam (Ativan 2mg/ml 1ml) 0.5 mg Q4H PRN IV For Anxiety 05/23/17 10:15 05/30/17 10:14 Methylprednisolone Sodium Succinate (Solu-MEDROL) 60 mg EVERY 6 HOURS IV 05/23/17 12:00 06/22/17 11:59 05/24/17 06:14 Metoprolol Succinate (Toprol XL) 50 mg DAILY ORAL 05/24/17 09:00 06/23/17 08:59 05/24/17 08:55 Morphine Sulfate (Morphine Sulfate) 2 mg Q4H PRN IVP Severe Pain (Pain Scale 7-10) 05/23/17 10:15 05/30/17 10:14 Nitroglycerin (Ntg) 0.4 mg Q5M X 3 DOSES PRN SL Prn Chest Pain 05/23/17 10:15 06/22/17 10:14 Ondansetron HCl (Zofran) 4 mg Q6H PRN IVP Nausea & Vomiting 05/23/17 10:15 06/22/17 10:14 Patient Own Medication (Patient's Own Med) 1 ea DAILY ORAL 05/24/17 09:00 06/23/17 08:59 05/24/17 08:56 Temazepam (Restoril) 15 mg HSPRN PRN ORAL Insomnia 05/23/17 21:00 05/30/17 20:59 Theophylline (Castro-Dur) 100 mg EVERY 12 HOURS ORAL 05/23/17 21:00 06/22/17 20:59 05/24/17 08:54 Venlafaxine HCl (Effexor-XR) 150 mg DAILY ORAL 05/24/17 09:00 06/23/17 08:59 05/24/17 09:17 Assessment/Plan Problem List: (1) Respiratory distress ICD Codes: R06.00 - Dyspnea, unspecified SNOMED: 785554284 (2) Asthma exacerbation ICD Codes: J45.901 - Unspecified asthma with (acute) exacerbation SNOMED: 367875726 (3) Bipolar disorder ICD Codes: F31.9 - Bipolar disorder, unspecified SNOMED: 37766356 (4) HTN (hypertension) ICD Codes: I10 - Essential (primary) hypertension SNOMED: 73653903 (5) Anxiety ICD Codes: F41.9 - Anxiety disorder, unspecified SNOMED: 76666591 (6) Tobacco abuse ICD Codes: Z72.0 - Tobacco use SNOMED: 15909285, 332133382 Assessment/Plan iv steroids IV abx check sputum respiratory treatment monitor BP antihypertensives. JOSSY SWEET May 24, 2017 12:05
--- NOTE | 2017-05-24 12:09 | Pulmonology Progress Note ---
Assessment/Plan Problems: (1) Respiratory distress (2) Asthma exacerbation (3) Bipolar disorder (4) HTN (hypertension) (5) Anxiety (6) Tobacco abuse Assessment/Plan improving less anxious psyc evaluation will taper steroids from tomorrow check sputum cardio consult appreciated. Subjective ROS Limited/Unobtainable: No Constitutional: Reports: no symptoms HEENT: Repors: no symptoms Respiratory: Reports: no symptoms Cardiovascular: Reports: no symptoms Gastrointestinal/Abdominal: Reports: no symptoms Genitourinary: Reports: no symptoms Allergies: Coded Allergies: GABAPENTIN (Verified Allergy, Unknown, 05/23/17) PENICILLINS (Verified Allergy, Unknown, 05/23/17) TETRACYCLINES (Verified Allergy, Unknown, 05/23/17) Objective Last 24 Hour Vital Signs Date Time Temp Pulse Resp B/P (MAP) Pulse Ox O2 Delivery O2 Flow Rate FiO2 05/24/17 12:04 98.1 98 18 160/100 98 Nasal Cannula 2.0 05/24/17 11:19 101 22 98 Nasal Cannula 2.0 05/24/17 11:10 102 20 98 Nasal Cannula 2.0 28 05/24/17 08:55 101 165/97 05/24/17 08:54 101 165/97 05/24/17 08:00 98.4 101 18 165/97 96 Nasal Cannula 2.0 05/24/17 08:00 117 05/24/17 07:42 100 20 98 Nasal Cannula 2.0 28 05/24/17 07:27 99 20 95 Nasal Cannula 2.0 28 05/24/17 07:26 Nasal Cannula 2.0 28 05/24/17 07:26 95 Nasal Cannula 2.0 28 05/24/17 04:00 97.9 89 20 144/89 93 Nasal Cannula 2.0 05/24/17 04:00 93 05/24/17 03:19 78 18 99 Nasal Cannula 2.0 28 05/24/17 03:10 90 18 93 Nasal Cannula 2.0 28 05/24/17 00:00 98.4 90 20 147/90 96 Nasal Cannula 2.0 05/23/17 23:24 77 18 98 Nasal Cannula 2.0 28 05/23/17 23:15 87 18 92 Nasal Cannula 2.0 28 05/23/17 21:00 103 05/23/17 20:00 98.8 96 21 141/77 96 Nasal Cannula 2.0 05/23/17 20:00 98 05/23/17 19:10 105 20 97 Nasal Cannula 2.0 28 05/23/17 19:00 Nasal Cannula 2.0 28 05/23/17 19:00 94 Nasal Cannula 2.0 28 05/23/17 19:00 113 20 94 Nasal Cannula 2.0 28 05/23/17 16:59 98 05/23/17 16:00 99.0 102 24 145/82 95 Nasal Cannula 2.0 05/23/17 14:14 98.6 102 23 124/68 96 Nasal Cannula 4.0 05/23/17 14:14 102 23 124/68 96 Nasal Cannula 4.0 Intake and Output 05/24/17 05/25/17 19:00 07:00 Intake Total 450 ml Balance 450 ml Intake Oral 450 ml # Voids 1 # Bowel Movements 1 General Appearance: WD/WN, no acute distress HEENT: atraumatic Cardiovascular: normal rate, regular rhythm Abdomen: normal bowel sounds, soft, non tender Genitourinary: normal external genitalia Extremities: no cyanosis Neurologic/Psychiatric: traffic rate analyst II-XII grossly normal Lymphatic: no neck adenopathy Musculoskeletal: normal muscle bulk Microbiology Date/Time Source Procedure Growth Status 05/23/17 08:00 Urine,Clean Catch Urine Culture - Preliminary NO GROWTH Resulted Laboratory Tests 05/24/17 04:45: White Blood Count 21.8H, Red Blood Count 4.12L, Hemoglobin 13.1L, Hematocrit 38.9L, Mean Corpuscular Volume 94, Mean Corpuscular Hemoglobin 31.8H, Mean Corpuscular Hemoglobin Concent 33.7, Red Cell Distribution Width 12.6, Platelet Count 229, Mean Platelet Volume 7.3, Neutrophils (%) (Auto) , Lymphocytes (%) ( Auto) , Monocytes (%) (Auto) , Eosinophils (%) (Auto) , Basophils (%) (Auto) , Differential Total Cells Counted 100, Neutrophils % (Manual) 93H, Lymphocytes % (Manual) 6L, Monocytes % (Manual) 1, Eosinophils % (Manual) 0, Basophils % ( Manual) 0, Band Neutrophils 0, Platelet Estimate Adequate, Platelet Morphology Normal, Red Blood Cell Morphology Normal, Sodium Level 143, Potassium Level 4.5 , Chloride Level 106, Carbon Dioxide Level 27, Anion Gap 10, Blood Urea Nitrogen 14, Creatinine 0.6, Estimat Glomerular Filtration Rate > 60, Glucose Level 128H, Calcium Level 9.3, Magnesium Level 2.4, Troponin I 0.146H 05/24/17 10:50: Troponin I 0.124H Current Medications Medications (Trade) Dose Ordered Sig/[place] Route PRN Reason Start Time Stop Time Status Last Admin Dose Admin Albuterol/ Ipratropium (DuoNeb 0.5-3(2.5)mg/3ml) 3 ml Q4H PRN HHN Shortness of Breath 05/23/17 08:45 05/28/17 08:44 Alprazolam (Xanax) 1 mg QIDPRN PRN ORAL For Anxiety 05/23/17 16:15 05/30/17 16:14 Amlodipine Besylate (Norvasc) 10 mg DAILY ORAL 05/24/17 09:00 06/23/17 08:59 05/24/17 08:54 Aspirin (Ecotrin) 81 mg DAILY ORAL 05/24/17 11:30 06/23/17 11:29 Atorvastatin Calcium (Lipitor) 40 mg BEDTIME ORAL 05/24/17 21:00 06/23/17 20:59 Aztreonam 1 gm/ Sodium Chloride 50 ml @ 100 mls/hr EVERY 8 HOURS IVPB 05/23/17 16:00 05/30/17 15:59 05/24/17 06:14 Dextrose (Dextrose 50%) STAT PRN IV Hypoglycemia 05/23/17 08:45 06/22/17 08:44 Dextrose (Dextrose 50%) STAT PRN IV Hypoglycemia 05/23/17 10:15 06/22/17 10:14 Divalproex Sodium (Depakote ER) 500 mg DAILY ORAL 05/25/17 09:00 06/24/17 08:59 UNV Divalproex Sodium (Depakote ER) 750 mg QPM ORAL 05/23/17 16:30 06/22/17 16:29 05/23/17 16:40 Guaifenesin (Mucinex ER) 600 mg TWICE A DAY ORAL 05/24/17 09:00 06/23/17 08:59 05/24/17 08:56 Guaifenesin/ Dextromethorphan (Robitussin DM) 10 ml Q4H PRN ORAL For Cough 05/23/17 23:00 06/22/17 22:59 Heparin Sodium (Porcine) (Heparin 5000 units/ml) 5,000 units EVERY 12 HOURS SUBQ 05/23/17 21:00 06/22/17 20:59 05/24/17 08:59 Ipratropium [place] (Atrovent) 500 mcg Q4HRT HHN 05/23/17 19:00 05/28/17 18:59 05/24/17 11:09 Ketorolac Tromethamine (Toradol 30mg) 30 mg Q8H PRN IV Moderate Pain (Pain Scale 4-6) 05/23/17 10:15 05/28/17 10:14 Lorazepam (Ativan 2mg/ml 1ml) 0.5 mg Q4H PRN IV For Anxiety 05/23/17 10:15 05/30/17 10:14 Methylprednisolone Sodium Succinate (Solu-MEDROL) 60 mg EVERY 6 HOURS IV 05/23/17 12:00 06/22/17 11:59 05/24/17 06:14 Metoprolol Succinate (Toprol XL) 50 mg DAILY ORAL 05/24/17 09:00 06/23/17 08:59 05/24/17 08:55 Morphine Sulfate (Morphine Sulfate) 2 mg Q4H PRN IVP Severe Pain (Pain Scale 7-10) 05/23/17 10:15 05/30/17 10:14 Nitroglycerin (Ntg) 0.4 mg Q5M X 3 DOSES PRN SL Prn Chest Pain 05/23/17 10:15 06/22/17 10:14 Ondansetron HCl (Zofran) 4 mg Q6H PRN IVP Nausea & Vomiting 05/23/17 10:15 06/22/17 10:14 Patient Own Medication (Patient's Own Med) 1 ea DAILY ORAL 05/24/17 09:00 06/23/17 08:59 05/24/17 08:56 Temazepam (Restoril) 15 mg HSPRN PRN ORAL Insomnia 05/23/17 21:00 05/30/17 20:59 Theophylline (Castro-Dur) 100 mg EVERY 12 HOURS ORAL 05/23/17 21:00 06/22/17 20:59 05/24/17 08:54 Venlafaxine HCl (Effexor-XR) 150 mg DAILY ORAL 05/24/17 09:00 06/23/17 08:59 05/24/17 09:17 JOSSY SWEET May 24, 2017 12:09
[2017-05-24] MEDS: Aspirin EC 81mg tab ORAL SCH (12:25)
--- NOTE | 2017-05-24 15:33 | General Progress Note ---
Assessment/Plan Problem List: (1) Acute respiratory failure with hypoxia ICD Codes: J96.01 - Acute respiratory failure with hypoxia SNOMED: 65307187, 915223970 (2) [place] vs COPD exacerbaion (3) Sinus tachycardia ICD Codes: R00.0 - Tachycardia, unspecified SNOMED: 59467063 (4) Tobacco abuse ICD Codes: Z72.0 - Tobacco use SNOMED: 34876052, 670364117 (5) HTN (hypertension) ICD Codes: I10 - Essential (primary) hypertension SNOMED: 28248523 (6) Anxiety ICD Codes: F41.9 - Anxiety disorder, unspecified SNOMED: 10638396 (7) Asthma ICD Codes: J45.909 - Unspecified asthma, uncomplicated SNOMED: 116228291 (8) Bipolar disorder ICD Codes: F31.9 - Bipolar disorder, unspecified SNOMED: 62402879 (9) Sinusitis ICD Codes: J32.9 - Chronic sinusitis, unspecified SNOMED: 36320777 (10) Chest pain, atypical ICD Codes: R07.89 - Other chest pain SNOMED: 660391466 Status: stable Assessment/Plan Pulmonology consulted Cont steroids per pulm Cont nebs ATC and PRN Change aztreonam to levofloxacin as pt noted possible allergic rxn to aztreonam Guaifenesin PRN F/u sputum cx Cardiology consulted given chest pain Trend trop/EKG ASA 81mg daily F/u TTE Cont home effexor, depakote, ARB, amlodipine Counseled pt to wean off benzo's Consider holding MTP given wheezing Radiology Clerk on tobacco cessation PFTs as outpt Pain control, supportive care, bowel regimen Psych eval DVT Prophylaxis: SCD, HSQ Code Status: Full Hospital Classification Declaration: Based on this initial evaluation, and depending on the patient's clinical course, I anticipate that this patient will require hospitalization for 1-2 days for asthma/COPD exacerbation, hypoxia and close respiratory/hemodynamic monitoring. Disposition: Once the patient is stable to leave the hospital, I anticipate the patient will likely be discharged to the following environment: home with HH vs SNF I spent 45 minutes on this patient's case, and 24 minutes were dedicated to counseling and/or care coordination. Discussed with patient/family, nursing staff, SW/CM, pulmonology, cardiology regarding clinical status, treatment course, and disposition planning. Time of note may not reflect time of encounter. Subjective Date patient seen: May 24, 2017 Time patient seen: 15:33 ROS Limited/Unobtainable: No Constitutional: Reports: no symptoms HEENT: Reports: no symptoms Cardiovascular: Reports: no symptoms Respiratory: Reports: cough, shortness of breath Gastrointestinal/Abdominal: Reports: no symptoms Genitourinary: Reports: no symptoms Neurologic/Psychiatric: Reports: no symptoms Hematologic/Lymphatic: Reports: no symptoms Allergies: Coded Allergies: GABAPENTIN (Verified Allergy, Unknown, 05/23/17) PENICILLINS (Verified Allergy, Unknown, 05/23/17) TETRACYCLINES (Verified Allergy, Unknown, 05/23/17) Subjective Troponin increased this AM. Pt chest pain free. Pt states he is feeling better--congestion, sinus pressure, cough, SOB slowly improving. Still w/ wheezing Denies chest pain, abd pain, f/c, n/v, d/c, abd pain Objective Last 24 Hour Vital Signs Date Time Temp Pulse Resp B/P (MAP) Pulse Ox O2 Delivery O2 Flow Rate FiO2 05/24/17 15:30 97 20 99 Nasal Cannula 2.0 05/24/17 15:10 97 20 99 Nasal Cannula 2.0 05/24/17 12:33 112 05/24/17 12:04 98.1 98 18 160/100 98 Nasal Cannula 2.0 05/24/17 11:19 101 22 98 Nasal Cannula 2.0 05/24/17 11:10 102 20 98 Nasal Cannula 2.0 05/24/17 08:55 101 165/97 05/24/17 08:54 101 165/97 05/24/17 08:00 98.4 101 18 165/97 96 Nasal Cannula 2.0 05/24/17 08:00 117 05/24/17 07:42 100 20 98 Nasal Cannula 2.0 05/24/17 07:27 99 20 95 Nasal Cannula 2.0 05/24/17 07:26 Nasal Cannula 2.0 05/24/17 07:26 95 Nasal Cannula 2.0 05/24/17 04:00 97.9 89 20 144/89 93 Nasal Cannula 2.0 05/24/17 04:00 93 05/24/17 03:19 78 18 99 Nasal Cannula 2.0 05/24/17 03:10 90 18 93 Nasal Cannula 2.0 28 05/24/17 00:00 98.4 90 20 147/90 96 Nasal Cannula 2.0 05/23/17 23:24 77 18 98 Nasal Cannula 2.0 28 05/23/17 23:15 87 18 92 Nasal Cannula 2.0 28 05/23/17 21:00 103 05/23/17 20:00 98.8 96 21 141/77 96 Nasal Cannula 2.0 05/23/17 20:00 98 05/23/17 19:10 105 20 97 Nasal Cannula 2.0 28 05/23/17 19:00 Nasal Cannula 2.0 28 05/23/17 19:00 94 Nasal Cannula 2.0 28 05/23/17 19:00 113 20 94 Nasal Cannula 2.0 28 05/23/17 16:59 98 05/23/17 16:00 99.0 102 24 145/82 95 Nasal Cannula 2.0 Intake and Output 05/24/17 05/25/17 19:00 07:00 Intake Total 450 ml Balance 450 ml Intake Oral 450 ml # Voids 1 # Bowel Movements 2 Laboratory Tests 05/24/17 04:45: White Blood Count 21.8H, Red Blood Count 4.12L, Hemoglobin 13.1L, Hematocrit 38.9L, Mean Corpuscular Volume 94, Mean Corpuscular Hemoglobin 31.8H, Mean Corpuscular Hemoglobin Concent 33.7, Red Cell Distribution Width 12.6, Platelet Count 229, Mean Platelet Volume 7.3, Neutrophils (%) (Auto) , Lymphocytes (%) ( Auto) , Monocytes (%) (Auto) , Eosinophils (%) (Auto) , Basophils (%) (Auto) , Differential Total Cells Counted 100, Neutrophils % (Manual) 93H, Lymphocytes % (Manual) 6L, Monocytes % (Manual) 1, Eosinophils % (Manual) 0, Basophils % ( Manual) 0, Band Neutrophils 0, Platelet Estimate Adequate, Platelet Morphology Normal, Red Blood Cell Morphology Normal, Sodium Level 143, Potassium Level 4.5 , Chloride Level 106, Carbon Dioxide Level 27, Anion Gap 10, Blood Urea Nitrogen 14, Creatinine 0.6, Estimat Glomerular Filtration Rate > 60, Glucose Level 128H, Calcium Level 9.3, Magnesium Level 2.4, Troponin I 0.146H 05/24/17 10:50: Troponin I 0.124H Height (Feet): 5 Height (Inches): 8.00 Weight (Pounds): 170 Objective General: alert, cooperative, no distress, appears stated age, anxious Head: normocephalic, without obvious abnormality, atraumatic Eyes: conjunctivae/corneas clear. PERRL, EOM's intact Throat: lips, mucosa, and tongue normal. MMM Neck: supple, symmetrical, trachea midline, and no JVD Lungs: +wheezing b/l Heart: tachycardic, regular rhythm, S1, S2 normal, no murmur, click, rub or gallop Abdomen: soft, non-tender, non-distended, bowel sounds normal; no masses or organomegaly Extremities: extremities normal, atraumatic, no cyanosis or edema Pulses: 2+ and symmetric Skin: skin color, texture, turgor normal; no rashes or lesions Neurologic: grossly normal, no focal deficits Ana Cristina Martínez M.D. May 24, 2017 15:33
[2017-05-24 16:00] VITALS: BP 151/83
[2017-05-24] MEDS ORDERED: NS 500ML IV ONE (16:21)
[2017-05-24] MEDS ORDERED: Tubing IV Secondary IV ONE (16:21)
[2017-05-24] MEDS: Depakote ER 250mg tab ORAL SCH (17:02)
[2017-05-24] MEDS ORDERED: ALPRAZolam 0.5mg tab ORAL PRN ×2 (18:45→23:00)
[2017-05-24 20:00] VITALS: BP 155/97
--- NOTE | 2017-05-24 22:53 | Consultation ---
History of Present Illness General Chief Complaint: Dyspnea/Respdistress Present Illness HPI 50-year-old male with a history of HTN, multiple allergies, asthma and anxiety He present chief complaint chest tightness and difficulty breathing with wheezing. the pt has anxiety and difficulty sleeping. the pt stated that trazadone does not work. the pt asked me to readjust meds Allergies: Coded Allergies: GABAPENTIN (Verified Allergy, Unknown, 05/23/17) PENICILLINS (Verified Allergy, Unknown, 05/23/17) TETRACYCLINES (Verified Allergy, Unknown, 05/23/17) Medication History Scheduled Alprazolam (Alprazolam), 1 MG ORAL TID, (Reported) Amlodipine Besylate (Norvasc), 10 MG ORAL DAILY, (Reported) Azilsartan Medoxomil (Edarbi), 40 MG ORAL DAILY, (Reported) Metoprolol Succinate* (Metoprolol Succinate*), 50 MG ORAL DAILY, (Reported) Venlafaxine Hcl* (Venlafaxine Hcl Er*), 150 MG ORAL DAILY, (Reported) Miscellaneous Medications Divalproex Sodium (Divalproex Sodium Er), 500 MG PO, (Reported) Divalproex Sodium (Divalproex Sodium Er), 250 MG PO, (Reported) Patient History Limited by: medical condition History Provided By: Patient, Medical Record, PMD Healthcare decision maker Resuscitation status Full Code Advanced Directive on File No Past Medical/Surgical History Past Medical/Surgical History: (1) Status asthmaticus (2) Bipolar disorder (3) Testicular cancer (4) Asthma (5) HTN (hypertension) (6) Anxiety (7) Tobacco abuse (8) Sinus tachycardia (9) Acute respiratory failure with hypoxia (10) [place] vs COPD exacerbaion (11) Sinusitis (12) Chest pain, atypical (13) Respiratory distress (14) Asthma exacerbation Review of Systems Constitutional: Reports: malaise, weakness Psychiatric: Reports: prior hx, anxiety, depressed feelings, emotional problems Physical Exam General Appearance: no apparent distress, alert Neurologic: alert, oriented x 3, responsive, depressed affect Last 24 Hour Vital Signs Date Time Temp Pulse Resp B/P (MAP) Pulse Ox O2 Delivery O2 Flow Rate FiO2 05/24/17 20:00 98.4 94 18 155/97 94 Nasal Cannula 2.0 05/24/17 19:14 98 21 99 Nasal Cannula 2.0 28 05/24/17 19:04 100 18 93 Nasal Cannula 2.0 28 05/24/17 19:00 Nasal Cannula 2.0 28 05/24/17 19:00 93 Nasal Cannula 2.0 28 05/24/17 16:00 98.3 92 18 151/83 98 Nasal Cannula 2.0 05/24/17 16:00 90 05/24/17 15:30 97 20 99 Nasal Cannula 2.0 28 05/24/17 15:10 97 20 99 Nasal Cannula 2.0 28 05/24/17 12:33 112 05/24/17 12:04 98.1 98 18 160/100 98 Nasal Cannula 2.0 05/24/17 11:19 101 22 98 Nasal Cannula 2.0 28 05/24/17 11:10 102 20 98 Nasal Cannula 2.0 28 05/24/17 08:55 101 165/97 05/24/17 08:54 101 165/97 05/24/17 08:00 98.4 101 18 165/97 96 Nasal Cannula 2.0 05/24/17 08:00 117 05/24/17 07:42 100 20 98 Nasal Cannula 2.0 28 05/24/17 07:27 99 20 95 Nasal Cannula 2.0 28 05/24/17 07:26 Nasal Cannula 2.0 28 05/24/17 07:26 95 Nasal Cannula 2.0 28 05/24/17 04:00 97.9 89 20 144/89 93 Nasal Cannula 2.0 05/24/17 04:00 93 05/24/17 03:19 78 18 99 Nasal Cannula 2.0 28 05/24/17 03:10 90 18 93 Nasal Cannula 2.0 28 05/24/17 00:00 98.4 90 20 147/90 96 Nasal Cannula 2.0 05/23/17 23:24 77 18 98 Nasal Cannula 2.0 28 05/23/17 23:15 87 18 92 Nasal Cannula 2.0 28 Intake and Output 05/24/17 05/25/17 19:00 07:00 Intake Total 450 ml Balance 450 ml Intake Oral 450 ml # Voids 5 # Bowel Movements 3 Laboratory Tests Test 05/24/17 04:45 05/24/17 10:50 05/24/17 19:05 White Blood Count 21.8 K/UL (4.8-10.8) H Red Blood Count 4.12 M/UL (4.70-6.10) L Hemoglobin 13.1 G/DL (14.2-18.0) L Hematocrit 38.9 % (42.0-52.0) L Mean Corpuscular Volume 94 FL (80-99) Mean Corpuscular Hemoglobin 31.8 PG (27.0-31.0) H Mean Corpuscular Hemoglobin Concent 33.7 G/DL (32.0-36.0) Red Cell Distribution Width 12.6 % (11.6-14.8) Platelet Count 229 K/UL (150-450) Mean Platelet Volume 7.3 FL (6.5-10.1) Neutrophils (%) (Auto) % (45.0-75.0) Lymphocytes (%) (Auto) % (20.0-45.0) Monocytes (%) (Auto) % (1.0-10.0) Eosinophils (%) (Auto) % (0.0-3.0) Basophils (%) (Auto) % (0.0-2.0) Differential Total Cells Counted 100 Neutrophils % (Manual) 93 % (45-75) H Lymphocytes % (Manual) 6 % (20-45) L Monocytes % (Manual) 1 % (1-10) Eosinophils % (Manual) 0 % (0-3) Basophils % (Manual) 0 % (0-2) Band Neutrophils 0 % (0-8) Platelet Estimate Adequate Platelet Morphology Normal Red Blood Cell Morphology Normal Sodium Level 143 MMOL/L (136-145) Potassium Level 4.5 MMOL/L (3.5-5.1) Chloride Level 106 MMOL/L (98-107) Carbon Dioxide Level 27 MMOL/L (21-32) Anion Gap 10 mmol/L (5-15) Blood Urea Nitrogen 14 mg/dL (7-18) Creatinine 0.6 MG/DL (0.55-1.30) Estimat Glomerular Filtration Rate > 60 mL/min (>60) Glucose Level 128 MG/DL (74-106) H Calcium Level 9.3 MG/DL (8.5-10.1) Magnesium Level 2.4 MG/DL (1.8-2.4) Troponin I 0.146 ng/mL (0.000-0.056) 0.124 ng/mL (0.000-0.056) 0.096 ng/mL (0.000-0.056) Height (Feet): 5 Height (Inches): 8.00 Weight (Pounds): 170 Medications Current Medications Medications (Trade) Dose Ordered Sig/[place] Route PRN Reason Start Time Stop Time Status Last Admin Dose Admin Albuterol/ Ipratropium (DuoNeb 0.5-3(2.5)mg/3ml) 3 ml Q4H PRN HHN Shortness of Breath 05/23/17 08:45 05/28/17 08:44 Alprazolam (Xanax) 2 mg BIDPRN PRN ORAL For Anxiety 05/24/17 18:45 05/30/17 16:14 05/24/17 21:25 Amlodipine Besylate (Norvasc) 10 mg DAILY ORAL 05/24/17 09:00 06/23/17 08:59 05/24/17 08:54 Aspirin (Ecotrin) 81 mg DAILY ORAL 05/24/17 11:30 06/23/17 11:29 05/24/17 12:25 Atorvastatin Calcium (Lipitor) 40 mg BEDTIME ORAL 05/24/17 21:00 06/23/17 20:59 Dextrose (Dextrose 50%) STAT PRN IV Hypoglycemia 05/23/17 08:45 06/22/17 08:44 Dextrose (Dextrose 50%) STAT PRN IV Hypoglycemia 05/23/17 10:15 06/22/17 10:14 Divalproex Sodium (Depakote ER) 750 mg QPM ORAL 05/23/17 16:30 06/22/17 16:29 05/24/17 17:02 Guaifenesin (Mucinex ER) 600 mg TWICE A DAY ORAL 05/24/17 09:00 06/23/17 08:59 05/24/17 17:52 Guaifenesin/ Dextromethorphan (Robitussin DM) 10 ml Q4H PRN ORAL For Cough 05/23/17 23:00 06/22/17 22:59 Heparin Sodium (Porcine) (Heparin 5000 units/ml) 5,000 units EVERY 12 HOURS SUBQ 05/23/17 21:00 06/22/17 20:59 05/24/17 21:21 Ipratropium [place] (Atrovent) 500 mcg Q4HRT HHN 05/23/17 19:00 05/28/17 18:59 05/24/17 19:03 Ketorolac Tromethamine (Toradol 30mg) 30 mg Q8H PRN IV Moderate Pain (Pain Scale 4-6) 05/23/17 10:15 05/28/17 10:14 Levofloxacin 150 ml @ 100 mls/hr Q24H IVPB 05/24/17 22:00 05/31/17 21:59 05/24/17 21:24 Methylprednisolone Sodium Succinate (Solu-MEDROL) 60 mg EVERY 6 HOURS IV 05/23/17 12:00 06/22/17 11:59 05/24/17 17:52 Morphine Sulfate (Morphine Sulfate) 2 mg Q4H PRN IVP Severe Pain (Pain Scale 7-10) 05/23/17 10:15 05/30/17 10:14 Nitroglycerin (Ntg) 0.4 mg Q5M X 3 DOSES PRN SL Prn Chest Pain 05/23/17 10:15 06/22/17 10:14 Ondansetron HCl (Zofran) 4 mg Q6H PRN IVP Nausea & Vomiting 05/23/17 10:15 06/22/17 10:14 Patient Own Medication (Patient's Own Med) 1 ea DAILY ORAL 05/24/17 09:00 06/23/17 08:59 05/24/17 08:56 Temazepam (Restoril) 15 mg HSPRN PRN ORAL Insomnia 05/23/17 21:00 05/30/17 20:59 Theophylline (Castro-Dur) 100 mg EVERY 12 HOURS ORAL 05/23/17 21:00 06/22/17 20:59 05/24/17 21:19 Venlafaxine HCl (Effexor-XR) 300 mg DAILY ORAL 05/25/17 09:00 06/24/17 08:59 Assessment/Plan Status: stable, progressing Assessment/Plan mdd, anxiety d/o -xanax -depakote Concha Kingsley M.D. May 24, 2017 22:53
--- NOTE | 2017-05-24 23:16 | Consultation ---
DATE OF CONSULTATION: 05/24/2017 CARDIOLOGY CONSULTATION REASON FOR CONSULTATION: Elevated troponin in a patient with history of hypertension. HISTORY OF PRESENT ILLNESS: The patient is a 51-year-old gentleman with history of asthma, hypertension, bipolar disorder, anxiety, as well as tobacco abuse, as well as history of testicular cancer, status post orchiectomy and radiation therapy, presented to the hospital with increased shortness of breath and congestion. The patient was seen by primary care physician and was put on antibiotics, however, because of increasing shortness of breath, the patient called 911 as he could not breathe. In the emergency room, the patient was hypoxic with saturation of 88% on room air, coarse wheezing, and tachycardic. The patient received steroids and antibiotics and nebulizers and admitted to step-down unit. At the time of my evaluation, his shortness of breath has improved and denies any chest pain. His first set of cardiac enzymes also showed elevated troponin. PAST MEDICAL HISTORY: As mentioned above. MEDICATIONS: 1. Toprol-XL 50 mg daily. 2. Azilsartan medoxomil (Edarbi). 3. Norvasc 10 mg daily. 4. Alprazolam. ALLERGIES: He is allergic to gabapentin, penicillin, and tetracycline. SOCIAL HISTORY: He lives at home. He continues to smoke about a pack a day, but denies using any street drugs. FAMILY HISTORY: Noncontributory. REVIEW OF SYSTEMS: Review of systems was thoroughly performed and was negative other than what was mentioned in the history of present illness. PHYSICAL EXAMINATION: VITAL SIGNS: Blood pressure of 165/97, pulse 101, respirations 18, and temperature 98.4 degrees. HEAD AND NECK: No JVD. LUNGS: Scattered wheezing. CARDIOVASCULAR: Regular S1 and S2 with no gallop or murmur. ABDOMEN: Soft and nontender. EXTREMITIES: No pitting edema. DIAGNOSTIC DATA: His 12-lead EKG from today showed sinus tachycardia at the rate of 103, but no acute ST-T wave abnormalities. LABORATORY DATA: His labs show white count of 21.8, hemoglobin of 13.9, hematocrit of 39, and platelet count of 229,000. Sodium 142, potassium is 4.5, BUN of 14, creatinine 0.6, and glucose of 128. His initial troponin was negative. Second troponin is mildly elevated at 0.146. ASSESSMENT/PLAN: 1. Troponin leak. The EKG today does not show any ST-T wave abnormality and the patient does not have any chest pain. We will get an echocardiogram and we will get the serial cardiac enzymes. In the meantime, the patient is on Toprol-XL 50 mg daily as well as aspirin and I would check his lipid profile and on statin as well. If the troponins are not significantly elevated, they will proceed with nuclear stress test tomorrow. 2. Hypertension. Continue Toprol-XL 50 mg daily and Norvasc 10 mg daily. 3. Chronic obstructive pulmonary disease, on theophylline and Atrovent. The patient also is on Solu-Medrol and aztreonam. 4. History of orchiectomy for testicular cancer. 5. Anxiety and bipolar disorder. Thank you very much, Dr. Chase, for allowing me to participate in the care of this patient. Please do not hesitate to contact me for any questions regarding my evaluation. Behzad Tirado M.D. DR: ARNOLD JOB#: [id number] CC:
[2017-05-25] VITALS: BP 140/80
[2017-05-25] MEDS: Solu-MEDROL 125mg Inj IV SCH ×2 (00:07→05:51)
[2017-05-25] MEDS: Ipratropium 0.02% Inh Soln 2.5ml UD HHN SCH ×4 (02:32→15:33)
[2017-05-25 03:59] LABS: MEAN CORPUSCULAR HEMOGLOBIN 31.4 PG (27.0-31.0); MEAN CORPUSCULAR HGB CONC 33.3 G/DL (32.0-36.0); MEAN CORPUSCULAR VOLUME 94 FL (80-99); MEAN PLATELET VOLUME 7.1 FL (6.5-10.1); PLATELET COUNT 252 K/UL (150-450); RED BLOOD COUNT 3.99 M/UL (4.70-6.10); RED CELL DISTRIBUTION WIDTH 12.4 % (11.6-14.8)
[2017-05-25 04:00] VITALS: BP 144/80
[2017-05-25 04:12] LABS: ALANINE AMINOTRANSFERASE 31 U/L (12-78); ANION GAP 10 mmol/L (5-15); ASPARTATE AMINO TRANSFERASE 22 U/L (15-37); CALCIUM 9.1 MG/DL (8.5-10.1); CARBON DIOXIDE 25 MMOL/L (21-32); CHLORIDE 107 MMOL/L (98-107); CREATININE 0.9 MG/DL (0.55-1.30); GLOMERULAR FILTRATION RATE > 60 mL/min (>60); MAGNESIUM 2.3 MG/DL (1.8-2.4); PHOSPHORUS 3.6 MG/DL (2.5-4.9); POTASSIUM 4.8 MMOL/L (3.5-5.1); SODIUM 142 MMOL/L (136-145); TOTAL PROTEIN 6.5 G/DL (6.4-8.2)
[2017-05-25 04:35] LABS: BAND NEUTROPHILS % (MANUAL) 0 % (0-8); BASOPHILS % (MANUAL) 0 % (0-2); EOSINOPHILS % (MANUAL) 0 % (0-3); LYMPHOCYTES % (MANUAL) 4 % (20-45); NEUTROPHILS % (MANUAL) 95 % (45-75); PLATELET ESTIMATE ADEQUATE; PLATELET MORPHOLOGY NORMAL; TOTAL CELLS COUNTED 100
[2017-05-25 08:00] VITALS: BP 143/80
[2017-05-25] MEDS: EDARBI 40 MG ORAL SCH (08:35)
[2017-05-25] MEDS: Aspirin EC 81mg tab ORAL SCH (08:36)
[2017-05-25] MEDS: guaiFENesin ER 600mg tab ORAL SCH ×2 (08:36→17:21)
[2017-05-25] MEDS: Theophylline ER 100mg ORAL SCH (08:36)
[2017-05-25] MEDS: Heparin 5000 units/ml inj SUBQ SCH (08:37)
[2017-05-25] MEDS ORDERED: Venlafaxine XR 150mg cap ORAL SCH ×2 (09:00)
[2017-05-25] MEDS ORDERED: Aspirin EC 81mg tab ORAL SCH (09:00)
[2017-05-25] MEDS ORDERED: Venlafaxine XR 75mg cap ORAL SCH (09:00)
[2017-05-25] MEDS ORDERED: Depakote ER 500mg tab ORAL SCH (09:00)
[2017-05-25 10:27] LABS: CHOLESTEROL 198 MG/DL (< 200); CHOLESTEROL/HDL RATIO 3.5 (3.3-4.4)
--- NOTE | 2017-05-25 11:03 | Pulmonology Progress Note ---
Assessment/Plan Problems: (1) Respiratory distress (2) Asthma exacerbation (3) Bipolar disorder (4) HTN (hypertension) (5) Anxiety (6) Tobacco abuse Assessment/Plan improving less anxious psyc evaluation will taper steroids to QD check sputum cardio consult appreciated. 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 Allergies: Coded Allergies: GABAPENTIN (Verified Allergy, Unknown, 05/23/17) PENICILLINS (Verified Allergy, Unknown, 05/23/17) TETRACYCLINES (Verified Allergy, Unknown, 05/23/17) Objective Last 24 Hour Vital Signs Date Time Temp Pulse Resp B/P (MAP) Pulse Ox O2 Delivery O2 Flow Rate FiO2 05/25/17 08:36 105 143/80 05/25/17 08:00 99.1 105 20 143/80 96 Room Air 05/25/17 08:00 100 05/25/17 07:33 94 20 98 Room Air 21 05/25/17 07:13 98 20 95 Room Air 21 05/25/17 07:11 Room Air 05/25/17 07:11 95 Room Air 05/25/17 04:00 98.2 96 18 144/80 93 Room Air 05/25/17 04:00 89 05/25/17 02:28 90 22 99 Room Air 21 05/25/17 02:16 86 24 97 Room Air 21 05/25/17 00:00 97.9 82 18 140/80 93 Nasal Cannula 2.0 05/25/17 00:00 94 05/24/17 23:03 98 21 99 Room Air 21 05/24/17 22:53 90 16 97 Nasal Cannula 2.0 28 05/24/17 20:00 98.4 94 18 155/97 94 Nasal Cannula 2.0 05/24/17 20:00 93 05/24/17 19:14 98 21 99 Nasal Cannula 2.0 28 05/24/17 19:04 100 18 93 Nasal Cannula 2.0 28 05/24/17 19:00 Nasal Cannula 2.0 28 05/24/17 19:00 93 Nasal Cannula 2.0 28 05/24/17 16:00 98.3 92 18 151/83 98 Nasal Cannula 2.0 05/24/17 16:00 90 05/24/17 15:30 97 20 99 Nasal Cannula 2.0 28 05/24/17 15:10 97 20 99 Nasal Cannula 2.0 28 05/24/17 12:33 112 05/24/17 12:04 98.1 98 18 160/100 98 Nasal Cannula 2.0 05/24/17 11:19 101 22 98 Nasal Cannula 2.0 28 05/24/17 11:10 102 20 98 Nasal Cannula 2.0 28 Intake and Output 05/25/17 05/26/17 19:00 07:00 Intake Total 120 ml Balance 120 ml Intake Oral 120 ml General Appearance: WD/WN HEENT: normocephalic, atraumatic Respiratory/Chest: chest wall non-tender, lungs clear Cardiovascular: normal peripheral pulses, normal rate Abdomen: normal bowel sounds, soft, non tender Genitourinary: normal external genitalia Extremities: no cyanosis Skin: no rash 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 Lymphatic: no neck adenopathy Microbiology Date/Time Source Procedure Growth Status 05/24/17 01:00 Sputum Gram Stain Pending Resulted 05/24/17 01:00 Sputum Sputum Culture - Preliminary Resulted 05/23/17 08:00 Urine,Clean Catch Urine Culture - Preliminary NO GROWTH AFTER 24 HOURS Resulted Laboratory Tests 05/24/17 19:05: Troponin I 0.096H 05/25/17 03:05: Troponin I 0.070H, White Blood Count 19.0H, Red Blood Count 3.99L, Hemoglobin 12.5L, Hematocrit 37.5L, Mean Corpuscular Volume 94, Mean Corpuscular Hemoglobin 31.4H, Mean Corpuscular Hemoglobin Concent 33.3, Red Cell Distribution Width 12.4, Platelet Count 252, Mean Platelet Volume 7.1, Neutrophils (%) (Auto) , Lymphocytes (%) (Auto) , Monocytes (%) (Auto) , Eosinophils (%) (Auto) , Basophils (%) (Auto) , Differential Total Cells Counted 100, Neutrophils % (Manual) 95H, Lymphocytes % (Manual) 4L, Monocytes % (Manual) 1, Eosinophils % (Manual) 0, Basophils % (Manual) 0, Band Neutrophils 0 , Platelet Estimate Adequate, Platelet Morphology Normal, Red Blood Cell Morphology Normal, Sodium Level 142, Potassium Level 4.8, Chloride Level 107, Carbon Dioxide Level 25, Anion Gap 10, Blood Urea Nitrogen 31H, Creatinine 0.9, Estimat Glomerular Filtration Rate > 60, Glucose Level 135H, Hemoglobin A1c [ Pending], Calcium Level 9.1, Phosphorus Level 3.6, Magnesium Level 2.3, Total Bilirubin 0.3, Aspartate Amino Transf (AST/SGOT) 22, Alanine Aminotransferase ( ALT/SGPT) 31, Alkaline Phosphatase 68, Total Protein 6.5, Albumin 3.2L, Globulin 3.3, Albumin/Globulin Ratio 1.0, Triglycerides Level 143, Cholesterol Level 198, LDL Cholesterol 126H, HDL Cholesterol 56, Cholesterol/HDL Ratio 3.5 Current Medications Medications (Trade) Dose Ordered Sig/[place] Route PRN Reason Start Time Stop Time Status Last Admin Dose Admin Albuterol/ Ipratropium (DuoNeb 0.5-3(2.5)mg/3ml) 3 ml Q4H PRN HHN Shortness of Breath 05/23/17 08:45 05/28/17 08:44 05/25/17 02:16 Alprazolam (Xanax) 1 mg TID PRN ORAL For Anxiety 05/24/17 23:00 05/30/17 16:14 Amlodipine Besylate (Norvasc) 10 mg DAILY ORAL 05/24/17 09:00 06/23/17 08:59 05/25/17 08:36 Aspirin (Ecotrin) 81 mg DAILY ORAL 05/24/17 11:30 06/23/17 11:29 05/25/17 08:36 Atorvastatin Calcium (Lipitor) 40 mg BEDTIME ORAL 05/24/17 21:00 06/23/17 20:59 Dextrose (Dextrose 50%) STAT PRN IV Hypoglycemia 05/23/17 08:45 06/22/17 08:44 Dextrose (Dextrose 50%) STAT PRN IV Hypoglycemia 05/23/17 10:15 06/22/17 10:14 Divalproex Sodium (Depakote ER) 500 mg BEDTIME ORAL 05/25/17 21:00 06/22/17 16:29 Guaifenesin (Mucinex ER) 600 mg TWICE A DAY ORAL 05/24/17 09:00 06/23/17 08:59 05/25/17 08:36 Guaifenesin/ Dextromethorphan (Robitussin DM) 10 ml Q4H PRN ORAL For Cough 05/23/17 23:00 06/22/17 22:59 Heparin Sodium (Porcine) (Heparin 5000 units/ml) 5,000 units EVERY 12 HOURS SUBQ 05/23/17 21:00 06/22/17 20:59 05/25/17 08:37 Ipratropium [place] (Atrovent) 500 mcg Q4HRT HHN 05/23/17 19:00 05/28/17 18:59 05/25/17 07:11 Ketorolac Tromethamine (Toradol 30mg) 30 mg Q8H PRN IV Moderate Pain (Pain Scale 4-6) 05/23/17 10:15 05/28/17 10:14 Levofloxacin 150 ml @ 100 mls/hr Q24H IVPB 05/24/17 22:00 05/31/17 21:59 05/24/17 21:24 Methylprednisolone Sodium Succinate (Solu-MEDROL) 60 mg DAILY IV 05/26/17 09:00 06/22/17 11:59 UNV Morphine Sulfate (Morphine Sulfate) 2 mg Q4H PRN IVP Severe Pain (Pain Scale 7-10) 05/23/17 10:15 05/30/17 10:14 Nitroglycerin (Ntg) 0.4 mg Q5M X 3 DOSES PRN SL Prn Chest Pain 05/23/17 10:15 06/22/17 10:14 Ondansetron HCl (Zofran) 4 mg Q6H PRN IVP Nausea & Vomiting 05/23/17 10:15 06/22/17 10:14 Patient Own Medication (Patient's Own Med) 1 ea DAILY ORAL 05/24/17 09:00 06/23/17 08:59 05/25/17 08:35 Temazepam (Restoril) 15 mg HSPRN PRN ORAL Insomnia 05/23/17 21:00 05/30/17 20:59 Theophylline (Castro-Dur) 100 mg EVERY 12 HOURS ORAL 05/23/17 21:00 06/22/17 20:59 05/25/17 08:36 Venlafaxine HCl (Effexor-XR) 75 mg DAILY ORAL 05/25/17 09:00 06/24/17 08:59 05/25/17 08:35 Venlafaxine HCl (Effexor-XR) 150 mg DAILY ORAL 05/25/17 09:00 06/24/17 08:59 05/25/17 08:35 JOSSY SWEET May 25, 2017 11:03
--- NOTE | 2017-05-25 11:44 | General Progress Note ---
Assessment/Plan Status: not improved, unchanged Assessment/Plan MDD, Anxiety d/o -increase xanax -increase depakote Subjective Neurologic/Psychiatric: Reports: anxiety, depressed, emotional problems Allergies: Coded Allergies: GABAPENTIN (Verified Allergy, Unknown, 05/23/17) PENICILLINS (Verified Allergy, Unknown, 05/23/17) TETRACYCLINES (Verified Allergy, Unknown, 05/23/17) Subjective the pt was overwhelmed, the pt has multiple complains/ the pt severely anxious and he perseverated . Objective Last 24 Hour Vital Signs Date Time Temp Pulse Resp B/P (MAP) Pulse Ox O2 Delivery O2 Flow Rate FiO2 05/25/17 11:18 98 20 96 Room Air 21 05/25/17 08:36 105 143/80 05/25/17 08:00 99.1 105 20 143/80 96 Room Air 05/25/17 08:00 100 05/25/17 07:33 94 20 98 Room Air 21 05/25/17 07:13 98 20 95 Room Air 21 05/25/17 07:11 Room Air 05/25/17 07:11 95 Room Air 05/25/17 04:00 98.2 96 18 144/80 93 Room Air 05/25/17 04:00 89 05/25/17 02:28 90 22 99 Room Air 21 05/25/17 02:16 86 24 97 Room Air 21 05/25/17 00:00 97.9 82 18 140/80 93 Nasal Cannula 2.0 05/25/17 00:00 94 05/24/17 23:03 98 21 99 Room Air 21 05/24/17 22:53 90 16 97 Nasal Cannula 2.0 28 05/24/17 20:00 98.4 94 18 155/97 94 Nasal Cannula 2.0 05/24/17 20:00 93 05/24/17 19:14 98 21 99 Nasal Cannula 2.0 28 05/24/17 19:04 100 18 93 Nasal Cannula 2.0 28 05/24/17 19:00 Nasal Cannula 2.0 28 05/24/17 19:00 93 Nasal Cannula 2.0 28 05/24/17 16:00 98.3 92 18 151/83 98 Nasal Cannula 2.0 05/24/17 16:00 90 05/24/17 15:30 97 20 99 Nasal Cannula 2.0 28 05/24/17 15:10 97 20 99 Nasal Cannula 2.0 28 05/24/17 12:33 112 05/24/17 12:04 98.1 98 18 160/100 98 Nasal Cannula 2.0 Intake and Output 05/25/17 05/26/17 19:00 07:00 Intake Total 120 ml Balance 120 ml Intake Oral 120 ml Laboratory Tests 05/24/17 19:05: Troponin I 0.096H 05/25/17 03:05: Troponin I 0.070H, White Blood Count 19.0H, Red Blood Count 3.99L, Hemoglobin 12.5L, Hematocrit 37.5L, Mean Corpuscular Volume 94, Mean Corpuscular Hemoglobin 31.4H, Mean Corpuscular Hemoglobin Concent 33.3, Red Cell Distribution Width 12.4, Platelet Count 252, Mean Platelet Volume 7.1, Neutrophils (%) (Auto) , Lymphocytes (%) (Auto) , Monocytes (%) (Auto) , Eosinophils (%) (Auto) , Basophils (%) (Auto) , Differential Total Cells Counted 100, Neutrophils % (Manual) 95H, Lymphocytes % (Manual) 4L, Monocytes % (Manual) 1, Eosinophils % (Manual) 0, Basophils % (Manual) 0, Band Neutrophils 0 , Platelet Estimate Adequate, Platelet Morphology Normal, Red Blood Cell Morphology Normal, Sodium Level 142, Potassium Level 4.8, Chloride Level 107, Carbon Dioxide Level 25, Anion Gap 10, Blood Urea Nitrogen 31H, Creatinine 0.9, Estimat Glomerular Filtration Rate > 60, Glucose Level 135H, Hemoglobin A1c [ Pending], Calcium Level 9.1, Phosphorus Level 3.6, Magnesium Level 2.3, Total Bilirubin 0.3, Aspartate Amino Transf (AST/SGOT) 22, Alanine Aminotransferase ( ALT/SGPT) 31, Alkaline Phosphatase 68, Total Protein 6.5, Albumin 3.2L, Globulin 3.3, Albumin/Globulin Ratio 1.0, Triglycerides Level 143, Cholesterol Level 198, LDL Cholesterol 126H, HDL Cholesterol 56, Cholesterol/HDL Ratio 3.5 Height (Feet): 5 Height (Inches): 8.00 Weight (Pounds): 170 General Appearance: no apparent distress, alert, agitated, overweight Neurologic: alert, oriented x 3, responsive, depressed affect Concha Castellano M.D. May 25, 2017 11:44
[2017-05-25] MEDS ORDERED: ALPRAZolam 0.5mg tab ORAL PRN (11:45)
[2017-05-25 12:00] VITALS: BP 143/79
[2017-05-25] MEDS ORDERED: LEVAQUIN750 MG ORAL (14:51)
[2017-05-25] MEDS ORDERED: PREDNISONE20 M1 PO (14:51)
--- NOTE | 2017-05-25 15:38 | Cardiology Report ---
APPROVED REPORT EKG Measurement Heart [id number] 134P [id number] Poor data quality, interpretation may be adversely affected Sinus tachycardia Right superior axis deviation Nonspecific T wave abnormality Abnormal ECG
[2017-05-25 16:00] VITALS: BP 132/90
--- NOTE | 2017-05-25 16:18 | Cardiac Electrophysiology PN ---
Assessment/Plan Assessment/Plan 1. Troponin leak. The EKG does not show any ST-T wave abnormality and the patient does not have any chest pain. Echo NL EF. Continue aspirin. Toprol DCed for asthma. Stress test results pending today. 2. Hypertension. Continue Norvasc 10 mg daily. 3. Chronic obstructive pulmonary disease, on theophylline and Atrovent. The patient also is on Solu-Medrol and aztreonam. 4. History of orchiectomy for testicular cancer. 5. Anxiety and bipolar disorder. Subjective Subjective Scheduled for stress test today. No events overnight. Objective Last 24 Hour Vital Signs Date Time Temp Pulse Resp B/P (MAP) Pulse Ox O2 Delivery O2 Flow Rate FiO2 05/25/17 15:43 108 18 97 Room Air 21 05/25/17 15:33 109 18 93 Room Air 21 05/25/17 12:00 98.0 98 23 143/79 95 Room Air 05/25/17 12:00 110 05/25/17 11:28 96 20 96 Room Air 21 05/25/17 11:18 98 20 96 Room Air 21 05/25/17 08:36 105 143/80 05/25/17 08:00 99.1 105 20 143/80 96 Room Air 05/25/17 08:00 100 05/25/17 07:33 94 20 98 Room Air 21 05/25/17 07:13 98 20 95 Room Air 21 05/25/17 07:11 Room Air 05/25/17 07:11 95 Room Air 05/25/17 04:00 98.2 96 18 144/80 93 Room Air 05/25/17 04:00 89 05/25/17 02:28 90 22 99 Room Air 21 05/25/17 02:16 86 24 97 Room Air 21 05/25/17 00:00 97.9 82 18 140/80 93 Nasal Cannula 2.0 05/25/17 00:00 94 05/24/17 23:03 98 21 99 Room Air 21 05/24/17 22:53 90 16 97 Nasal Cannula 2.0 28 05/24/17 20:00 98.4 94 18 155/97 94 Nasal Cannula 2.0 05/24/17 20:00 93 05/24/17 19:14 98 21 99 Nasal Cannula 2.0 05/24/17 19:04 100 18 93 Nasal Cannula 2.0 28 05/24/17 19:00 Nasal Cannula 2.0 28 05/24/17 19:00 93 Nasal Cannula 2.0 28 Intake and Output 05/25/17 05/26/17 19:00 07:00 Intake Total 120 ml Balance 120 ml Intake Oral 120 ml # Voids 2 # Bowel Movements 1 Laboratory Tests Test 05/24/17 19:05 05/25/17 03:05 Troponin I 0.096 ng/mL (0.000-0.056) 0.070 ng/mL (0.000-0.056) White Blood Count 19.0 K/UL (4.8-10.8) H Red Blood Count 3.99 M/UL (4.70-6.10) L Hemoglobin 12.5 G/DL (14.2-18.0) L Hematocrit 37.5 % (42.0-52.0) L Mean Corpuscular Volume 94 FL (80-99) Mean Corpuscular Hemoglobin 31.4 PG (27.0-31.0) H Mean Corpuscular Hemoglobin Concent 33.3 G/DL (32.0-36.0) Red Cell Distribution Width 12.4 % (11.6-14.8) Platelet Count 252 K/UL (150-450) Mean Platelet Volume 7.1 FL (6.5-10.1) Neutrophils (%) (Auto) % (45.0-75.0) Lymphocytes (%) (Auto) % (20.0-45.0) Monocytes (%) (Auto) % (1.0-10.0) Eosinophils (%) (Auto) % (0.0-3.0) Basophils (%) (Auto) % (0.0-2.0) Differential Total Cells Counted 100 Neutrophils % (Manual) 95 % (45-75) H Lymphocytes % (Manual) 4 % (20-45) L Monocytes % (Manual) 1 % (1-10) Eosinophils % (Manual) 0 % (0-3) Basophils % (Manual) 0 % (0-2) Band Neutrophils 0 % (0-8) Platelet Estimate Adequate Platelet Morphology Normal Red Blood Cell Morphology Normal Sodium Level 142 MMOL/L (136-145) Potassium Level 4.8 MMOL/L (3.5-5.1) Chloride Level 107 MMOL/L (98-107) Carbon Dioxide Level 25 MMOL/L (21-32) Anion Gap 10 mmol/L (5-15) Blood Urea Nitrogen 31 mg/dL (7-18) H Creatinine 0.9 MG/DL (0.55-1.30) Estimat Glomerular Filtration Rate > 60 mL/min (>60) Glucose Level 135 MG/DL (74-106) H Hemoglobin A1c 7.0 % (4.3-6.0) H Calcium Level 9.1 MG/DL (8.5-10.1) Phosphorus Level 3.6 MG/DL (2.5-4.9) Magnesium Level 2.3 MG/DL (1.8-2.4) Total Bilirubin 0.3 MG/DL (0.2-1.0) Aspartate Amino Transf (AST/SGOT) 22 U/L (15-37) Alanine Aminotransferase (ALT/SGPT) 31 U/L (12-78) Alkaline Phosphatase 68 U/L (46-116) Total Protein 6.5 G/DL (6.4-8.2) Albumin 3.2 G/DL (3.4-5.0) L Globulin 3.3 g/dL Albumin/Globulin Ratio 1.0 (1.0-2.7) Triglycerides Level 143 MG/DL (0-200) Cholesterol Level 198 MG/DL (< 200) LDL Cholesterol 126 mg/dL (<100) H HDL Cholesterol 56 MG/DL (40-60) Cholesterol/HDL Ratio 3.5 (3.3-4.4) Microbiology Date/Time Source Procedure Growth Status 05/24/17 01:00 Sputum Gram Stain - Final Resulted 05/24/17 01:00 Sputum Sputum Culture - Preliminary Resulted 05/23/17 08:00 Urine,Clean Catch Urine Culture - Preliminary NO GROWTH AFTER 24 HOURS Resulted Objective HEAD AND NECK: No JVD. LUNGS: Scattered wheezing. CARDIOVASCULAR: Regular S1 and S2 with no gallop or murmur. ABDOMEN: Soft and nontender. EXTREMITIES: No pitting edema. BETH MOON May 25, 2017 16:18
--- NOTE | 2017-05-25 16:47 | Diagnostic Imaging Report ---
Indications: Chest pain and Technique: Single day single isotope protocol utilized. Initially, resting images obtained using IV administration 10.2 millicuries 99M technetium Myoview. Subsequently, patient underwent treadmill stress testing. See cardiology report for details. During exercise, IV administration 32.4 mCi 99 M technetium Myoview. SPECT and planar images obtained. SPECT images gated to 8 phases of the cardiac cycle were also obtained, and reformatted into cine images for evaluation of ejection fraction. Comparison: None Findings: Per cardiology report, patient experienced no symptoms. Per cardiology report, resting EKG demonstrates normal sinus rhythm. No ST-T wave changes were recorded during infusion. Imaging demonstrates normal post stress perfusion, no fixed or reversible perfusion defects demonstrated. Normal cardiac chamber size. Calculated post stress ejection fraction is 74%. No focal wall motion abnormality. Impression: Nonischemic clinical response to pharmacologic stress, per cardiology report Nonischemic electrocardiographic response to pharmacologic stress, per cardiology report No imaging findings to suggest ischemia, at level of stress achieved. Calculated post stress ejection fraction greater than 70%
[2017-05-25] MEDS ORDERED: Tubing IV Secondary IV ONE (17:49)
[2017-05-25] MEDS ORDERED: Depakote ER 250mg tab ORAL SCH ×2 (21:00)
--- NOTE | 2017-05-25 22:15 | Discharge Summary ---
Discharge Summary Hospital Course Date of Admission May 23, 2017 at 07:33 Date of Discharge May 25, 2017 at 17:50 Admitting Diagnosis Asthma exacerbation HPI 50yo male with pmh of asthma, tobacco abuse, HTN, bipolar d/o, anxiety, testicular cancer s/p orchiectomy and XRT who presents with SOB and congestion. Pt states symptoms started Sunday w/ sinus pressure, headache, congestion. He saw his PCP and was placed on antibiotics. He noted increasing SOB, wheezing, cough, congestion. Cough is productive of thick sputum. His inhaler did not help. He called 911 because he couldn't breathe. Denies f/c, n/v, d/c, abd pain , LE swelling. Also notes some chest discomfort form congestion and constant coughing. In ED, pt noted to be hypoxic to 88% on RA, tachycardic and wheezing. He was given several rounds of nebs, steroids and antibiotics w/o significant response. Consultations Cardiology, pulmonology Hospital Course Pt was admitted to [facility]. He was treated with around the clock nebulizers, as well as steroids and antibiotics. Pt with improvement. Given chest pain, pt's troponin was monitored and he was noted to have an elevation. TTE showed normal EF. Cardiac stress test was unremarkable. Pt with likely NSTEMI type 2 in setting of sinus tachycardia and asthma vs COPD exacerbation. Discharge physical exam General: alert, cooperative, no distress, appears stated age, anxious Head: normocephalic, without obvious abnormality, atraumatic Eyes: conjunctivae/corneas clear. PERRL, EOM's intact Throat: lips, mucosa, and tongue normal. MMM Neck: supple, symmetrical, trachea midline, and no JVD Lungs: mild wheezing b/l (improved) Heart: tachycardic, regular rhythm, S1, S2 normal, no murmur, click, rub or gallop Abdomen: soft, non-tender, non-distended, bowel sounds normal; no masses or organomegaly Extremities: extremities normal, atraumatic, no cyanosis or edema Pulses: 2+ and symmetric Skin: skin color, texture, turgor normal; no rashes or lesions Neurologic: grossly normal, no focal deficits Discharge Medications New Medications: Levofloxacin* (Levaquin*) 750 Mg Tablet 750 MG ORAL DAILY for 5 Days, TAB Prednisone (Prednisone) 20 Mg Tablet 20 MG PO DAILY for 16 Days, TAB 40mg daily x 3 days, then 20mg daily x 2 days, and then off Continued Medications: Alprazolam (Alprazolam) 1 Mg Tab.rapdis 1 MG ORAL TID, TAB Amlodipine Besylate (Norvasc) 10 Mg Tablet 10 MG ORAL DAILY, TAB Azilsartan Medoxomil (Edarbi) 40 Mg Tablet 40 MG ORAL DAILY, TAB Divalproex Sodium (Divalproex Sodium Er) 500 Mg Tab.er.24h 500 MG PO, TAB Divalproex Sodium (Divalproex Sodium Er) 250 Mg Tab.er.24h 250 MG PO, TAB Venlafaxine Hcl* (Venlafaxine Hcl Er*) 150 Mg Cap.er.24h 150 MG ORAL DAILY, CAP Discontinued Medications: Metoprolol Succinate* (Metoprolol Succinate*) 50 Mg Tab.er.24h 50 MG ORAL DAILY, TAB Discharge Condition Upon Discharge: stable Discharge Disposition Patient was discharged to Home (01) Discharge Diagnoses: (1) Non-ST elevation myocardial infarction (NSTEMI), type 2 (2) Acute respiratory failure with hypoxia (3) [place] vs COPD exacerbaion (4) Sinus tachycardia (5) Chest pain, atypical (6) HTN (hypertension) (7) Anxiety (8) Tobacco abuse (9) Bipolar disorder (10) Bronchitis (11) Sinusitis Ana Cristina Martínez M.D. May 25, 2017 22:15
[2017-05-26] MEDS ORDERED: Solu-MEDROL 125mg Inj IV SCH (09:00)
--- NOTE | 2017-05-28 13:56 | Cardiology Report ---
APPROVED REPORT EXAM: Two-dimensional and M-mode echocardiogram with Doppler and color Doppler. INDICATION Elevated Troponin M-Mode DIMENSIONS IVSd0.8 (0.7-1.1cm)Left Atrium (MM)3.7 (1.6-4.0cm) LVDd5.4 (3.5-5.6cm)Aortic Root2.7 (2.0-3.7cm) PWd0.8 (0.7-1.1cm)Aortic Cusp Exc.2.0 (1.5-2.0cm) LVDs3.6 (2.5-4.0cm) PWs1.0 cm Normal left ventricular chamber size, systolic function and wall motion. Left ventricular ejection fraction estimated to be 55 %. No evidence of left ventricular hypertrophy. Anterior Echo-free space, may be due to pericardial fat or effusion. All other cardiac chamber sizes are within normal limits. Normal appearing aortic valve structure. Mildly thickened mitral valve leaflets with normal excursion. Mild mitral annulus and aortic root calcification. Pulmonic valve not well visualized. Normal tricuspid valve structure. IVC dilated at 2.0 cm with physiological collapse. A color flow and spectral Doppler study was performed and revealed: No aortic insufficiency. Trace mitral regurgitation. Mitral diastolic velocities suggest reduced left ventricular relaxation c/w impaired relaxation (Grade I). Trace tricuspid regurgitation. Tricuspid systolic velocities suggests peak right ventricular systolic pressure of 23 mmHg. No pulmonic regurgitation present.
== END 2017-05-25 17:50 | DRG 280 ==
LOC: EDBD 05:35 → EMR 06:56 → 2W 07:33 → EDBEDREQ 07:46 → EDBEDREQSVC 08:03 → EDBEDREQ 08:03 → 2W 05-24 09:10
DX: I21.4 Non-ST elevation (NSTEMI) myocardial infarction (principal); J96.01 Acute respiratory failure with hypoxia; J44.1 Chronic obstructive pulmonary disease with (acute) exacerbation; I10 Essential (primary) hypertension; F41.9 Anxiety disorder, unspecified; F31.9 Bipolar disorder, unspecified; J32.9 Chronic sinusitis, unspecified; R07.89 Other chest pain; R00.0 Tachycardia, unspecified; F17.200 Nicotine dependence, unspecified, uncomplicated; Z88.0 Allergy status to penicillin; Z88.8 Allergy status to other drugs, medicaments and biological substances; Z85.47 Personal history of malignant neoplasm of testis; Z90.79 Acquired absence of other genital organ(s); Z92.3 Personal history of irradiation
CPT/HCPCS: 36415; 71010; 78452; 80048; 80053; 80061; 80306; 81003; 82550; 82553; 83036; 83735; 83880; 84100; 84484; 85007; 85025; 87070; 87086; 87181; 87205; 93005; 93017; 93306; 94640; 94664; 94760; J7620